=== PATIENT | male | born 1965 | race Caucasian/White ===

== ENCOUNTER → 2017-09-12 | Outpatient (REF) | payer OTHER ==
[2017-09-12 18:51] LABS: APPEARANCE, URINE CLEAR (CLEAR); BACTERIA, URINE AUTO NEGATIVE (NEGATIVE); BILIRUBIN, URINE AUTO NEGATIVE (NEGATIVE); BLOOD, URINE BLOOD NEGATIVE (NEGATIVE); COLOR, URINE YELLOW (YELLOW); GLUCOSE, URINE (UA) AUTO NEGATIVE (NEGATIVE); KETONE, URINE AUTO NEGATIVE (NEGATIVE); LEUKOCYTE ESTERASE, URINE AUTO NEGATIVE (NEGATIVE); MUCUS, URINE SMALL (NEGATIVE); NITRITE, URINE AUTO NEGATIVE (NEGATIVE); PROTEIN, URINE AUTO NEGATIVE (NEGATIVE); RBC, URINE AUTO 2 /HPF (0-3); SPECIFIC GRAVITY URINE AUTO 1.023 (1.002-1.035); SQUAMOUS EPITHELIAL CELL UR AU 0 /HPF (0-6); WBC, URINE AUTO 0 /HPF (0-3)
== END ==
LOC: M SMT 17:21
DX: N40.1 Benign prostatic hyperplasia with lower urinary tract symptoms (principal); R31.29 Other microscopic hematuria

== ENCOUNTER → 2017-09-19 | Outpatient (CLI) | payer OTHER | LOC: M RAD 12:59 | DX: M54.9 Dorsalgia, unspecified (principal); N40.0 Benign prostatic hyperplasia without lower urinary tract symptoms | CPT/HCPCS: 76775 ==

== ENCOUNTER → 2017-10-03 | Outpatient (REF) | payer OTHER ==
[2017-10-03 18:48] LABS: AMORPHOUS SEDIMENT LARGE (NEGATIVE); APPEARANCE, URINE TURBID (CLEAR); BACTERIA, URINE AUTO NEGATIVE (NEGATIVE); BILIRUBIN, URINE AUTO NEGATIVE (NEGATIVE); BLOOD, URINE BLOOD NEGATIVE (NEGATIVE); COLOR, URINE AMBER (YELLOW); GLUCOSE, URINE (UA) AUTO NEGATIVE (NEGATIVE); KETONE, URINE AUTO TRACE mg/dL (NEGATIVE); LEUKOCYTE ESTERASE, URINE AUTO NEGATIVE (NEGATIVE); MUCUS, URINE SMALL (NEGATIVE); NITRITE, URINE AUTO NEGATIVE (NEGATIVE); PROTEIN, URINE AUTO NEGATIVE (NEGATIVE); RBC, URINE AUTO 2 /HPF (0-3); SPECIFIC GRAVITY URINE AUTO 1.028 (1.002-1.035); SQUAMOUS EPITHELIAL CELL UR AU 0 /HPF (0-6); WBC, URINE AUTO 1 /HPF (0-3)
== END ==
LOC: M SMT 17:02
DX: R31.29 Other microscopic hematuria (principal)

== ENCOUNTER → 2017-10-03 | Outpatient (CLI) | payer OTHER | LOC: M SLEEP 20:01 | DX: G47.33 Obstructive sleep apnea (adult) (pediatric) (principal) | CPT/HCPCS: 95811 ==

== ENCOUNTER → 2018-04-29 | Outpatient (REF) | payer OTHER ==
[~2018-04-29] MED LIST: ALEV220C2 PO; ASPI81TA85 PO; CVS20TAB PO; FISH5CAP PO; LIPI20TA PO; MELA2.5C PO; METO-346 PO; METO1TAB87 PO; MULT1TAB8 PO; PLAV1TAB2 PO; TRAM50TA2 PO; VITA30004 PO; ZYRT10CA5 PO
== END ==
LOC: M SFHCLERA 09:37
PROVIDERS: ATTEND Nurse Practitioner Family
DX: R53.81 Other malaise (principal)

== ENCOUNTER → 2020-02-21 | Outpatient (REF) | payer BC, OTHER ==
[~2020-02-21] MED LIST changes: -ASPI81TA85 PO; +ASPI81TA86 PO; -CVS20TAB PO; +OMEP20TA9 PO
== END ==
LOC: M LAB REF 16:14
PROVIDERS: ATTEND Physician Assistant
DX: Z20.828 Contact with and (suspected) exposure to other viral communicable diseases (principal)

== ENCOUNTER → 2020-04-12 | Outpatient (CLI) | payer BC, OTHER | LOC: M LABSMTC 09:13 | PROVIDERS: ATTEND Anesthesiology | DX: Z01.812 Encounter for preprocedural laboratory examination (principal); Z20.822 Contact with and (suspected) exposure to COVID-19 ==

== ENCOUNTER 2020-04-17 11:56 | Day surgery (SDC) | payer BC, OTHER ==
[~2020-04-17] VITALS: Ht 177.8 cm; Wt 95.4 kg
[~2020-04-17 11:56] MED LIST changes: +ACET650T61 PO; +ASPI81TA26 PO; +CETI10CH PO; +CLOP75TA2 PO; +D31000TA2 PO; +FLOM0.4C39 PO; +FLUT15.819; +LIDOCAINE 2% 100MG/5ML SDV (FOR ANES.) As Ordered ONE; +LOSA25TA14 PO; +METO25TA4 PO; +NS 1,000 ML IV ONE; +OMEP1CAP73 PO; +REPA140I2 SC; +THERTAB52 PO; +fentaNYL 100 MCG/2 ML INJECTION (J3010) As Ordered ONE; +propofoL 200 MG/20 ML VIAL As Ordered ONE
--- OUTSIDE RECORDS SUMMARY | 2020-04-17 11:59 | CCD ---
Author Author [facility] Organization [facility] Address Unknown Phone Unavailable Care Team Providers Care Top Polisher Name Role Phone Amber Hodge Unavailable PROBLEMS Type Condition ICD9-CM Code [id number] Code Onset Dates Condition S tatus SNOMED Code Notes Problem Irritable bowel syndrome with constipation K58.1 Active 779060589 Problem Dietary counseling and surveillance Z71.3 Acti ve 837713740 Problem Pain of right thumb M79.644 Active 998577609710 9102 Problem Dorsalgia, unspecified M54.9 Active 309501570 Problem Influenza vaccine needed Z23 Active 0470590 01 Problem Intermittent palpitations R00.2 Active 014034 007 Problem Other specified counseling Z71.89 Active 48620 3005 Problem Lateral epicondylitis, right elbow M77.11 Activ e 103618969404620 Problem Trigger finger, right index finger M65.321 Activ e 092874739 Problem Encounter for general adult medical examination without abnormal findings Z00.00 Active 675600926 Problem Sinusitis J32.9 Active 18524728 Problem Skin lesions L98.9 Active 28249092 Problem Elevated blood pressure reading R03.0 Active 59697139 Problem Personal history of other malignant neoplasm of skin Z85.828 Active 309209107 Problem Enlarged prostate on rectal examination N40.0 Active 787901610 Problem Diverticulosis of large intestine without hemorrhage K57.30 Active 710284956 Problem Pure hypercholesterolemia 272.0 Active 613491 004 Problem 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 23 Active 85476378 Problem Golfers elbow of right upper extremity M77.01 A ctive 30891622 Problem H/O heart artery stent V45.82 Active 029015097 Problem Tendonitis of elbow, right M77.8 Active 30181 990154314309 Problem Essential (primary) hypertension 401.9 Active 62913469 Problem Actinic keratosis L57.0 Active 514465188 Problem Pain of left thumb M79.645 Active 795922461 Problem Right elbow pain M25.521 Active 96292743 Problem CAD (coronary artery disease) 414.00 Active 53 797929 Problem Essential (primary) hypertension I10 Active 37350646 Problem Vitamin D deficiency E55.9 Active 02412311 Problem History of heart artery stent Z95.5 Active 42 4135159 Problem Obesity (BMI 30.0-34.9) E66.9 Active 56867592 6623050 Problem History of colonic polyps Z86.010 Active 338127 002 Problem Fatty liver K76.0 Active 940222613 Problem Pure hypercholesterolemia E78.00 Active 704722 004 Problem Constipation, unspecified constipation type K59.00 Active 71106788 Problem Atypical pigmented skin lesion L81.9 Active 2 23723293 Problem Body mass index (BMI) of 30.0-30.9 in adult Z68.30 Active 716613360 Problem Obstructive sleep apnea G47.33 Active 21087404 Problem Status post percutaneous transluminal coronary angioplasty Z98.61 Active 051722251 ALLERGIES No Known Allergies ENCOUNTERS from 1965 to 2020-03-13 Encounter Location Date Provider Diagnosis [address] [address] 08 Mar, 2020 Amber Hodge IMMUNIZATIONS Vaccine Route Administration Date Status INFLUENZA 3 YRS AND OLDER Preservative free IM Intramuscular Jan 25, 2017 Administered INFLUENZA 3 YRS AND OLDER Preservative free Unknown Mar 28, 2016 Administered Influenza preservative free IM Intramuscular Dec 21, 2018 Adm inistered SOCIAL HISTORY Tobacco Use: Social History Observation Description Date Details (start date - stop date) Never Smoker Sex Assigned At : Social History Observation Description Sex Assigned At Male Alcohol Screen Question Answer Notes Did you have a drink containing alcohol in the past year? Ye s Points 0 Interpretation Negative Tobacco Use/Smoking Question Answer Notes Are you a never smoker REASON FOR REFERRAL No Information VITAL SIGNS No information MEDICATIONS Medication SIG (Take, Route, Frequency, Duration) Notes Start Da te End Date Status Zyrtec Allergy 10 MG 1 tablet Orally qhs for 30 day(s) Active Plavix 75 MG 1 tablet Orally Once a day Active Vitamin D 2000 UNIT 3 tablet Orally Once a day Active Repatha 140 MG/ML 1 ml Subcutaneous every 2 weeks Active Losartan Potassium 25 MG 1 tablet Orally Once a day for 90 days Active Aspirin 81 MG 1 tablet Orally Once a day Active Omeprazole 20 MG 1 capsule Orally qhs for 30 day(s) Active Tramadol HCl 50 MG 1 tablet as needed Orally q hs Not-Taking Metoprolol Tartrate 25 MG 1/2 tablet at bedtime Orally Once a day Active Flomax 0.4 mg 1 capsule Orally Once a day for 30 days 2017 Active PROCEDURES No Information RESULTS No Results REASON FOR VISIT appt MEDICAL (GENERAL) HISTORY Type Description Date Medical History Hyperlipidemia- familial Medical History GERD Medical History Chronic back pain/shoulder pain Medical History CAD (coronary artery disease) Medical History H/O heart artery stent Medical History Essential (primary) hypertension Surgical History B/L shoulder surgery 2003 Surgical History L5-S1 laminectomy Surgical History Testicular fixation due to torsion Surgical History coronary artery stent, another 08/2019 Surgical History Colonoscopy 02/2018 Hospitalization History myocardial infarction 2014 Goals Section No Information Health Concerns No Information MEDICAL EQUIPMENT No Information MENTAL STATUS No Information FUNCTIONAL STATUS No Information ASSESSMENTS No Information PLAN OF TREATMENT Medication Medication Name Sig Start Date Stop Date Losartan Potassium 25 MG 1 tablet Orally Once a day for 90 days Next Appt Details Provider Name:Karen Kelly, 2020-05-0 8 01:00:00 PM, [address] [place] [address], [id number], Insurance Providers Payer Name Payer Address Payer Phone Insured Name Patient Relati onship to Insured Coverage Start Date Coverage End Date [facility] [employer] [address] [facility] [phone] REGINA CAMPBELL
--- OUTSIDE RECORDS SUMMARY | 2020-04-17 11:59 | CCD | Continuity of Care Document ---
Author Author Wesley ROUSSEAU M.D. Organization Unknown Address [address], [address] [place] [address] Phone [phone] Care Team Providers Care Wheel Cleaner Name Role Phone Amber Hodge AUTM [phone] Problems Active Problems Provider Date Essential hypertension Bebeto Rousseau M.D. Onset: 03/2019 Social History Type Date Description Comments Sex Unknown ETOH Use 1-2 drinks/wk Tobacco Use Start: Unknown Non Smoker Allergies, Adverse Reactions, Alerts Description No Known Drug Allergies Medications Active Medications SIG Qnty Indications Ordering Provide r Date Losartan Potassium 25mg Tablets 1tab po qd Unknown Metoprolol Tartrate 25mg Tablets 1/2tab po qd Unknown Omeprazole 20mg Capsules DR 1cap po qd Unknown Tamsulosin HCL 0.4mg Capsules 1cap po qd Unknown Cetirizine HCL 10mg Tablets 1tab po qd Unknown Tylenol Extra Strength 500mg Table ts 1tab po q8h prn Unknown Aspirin [address] 1t ab po qd Unknown Clopidogrel Bisulfate 75mg Tablets (Plavix) 1tab po qd Unknown Repatha 140mg/ml Soln Prefill Syri nge Inj q2wks Unknown Immunizations Description No Information Available Vital Signs Date Vital Result Comment 02/04/2020 8:30am BP Systolic 148 mmHg BP Diastolic 76 mmHg Height 70 inches 5'10" Weight 210.00 lb BMI (Body Mass Index) 30.1 kg/m2 Erick Body Weight 166 lb Weight 95.256 kg BSA (Body Surface Area) 2.13 m2 Results Description No Information Available Procedures Description No Information Available Medical Devices Description No Information Available Encounters Description No Information Available Assessments Date Code Description Provider 02/04/2020 K76.0 Fatty (change of) liver, not els ewhere classified Bebeto Rousseau M.D. 02/04/2020 R10.13 Epigastric pain Bebeto Shaikh ala, M.D. Plan of Treatment 02/04/2020 - Bebeto Rousseau M.D.* K76.0 Fatty (change of) liver, not elsewhere classified * R10.13 Epigastric pain * * New Labs:* CBC With Differential, Ordered: 02/04/20 * Liver Profile, Ordered: 02/04/20 * BUN & Creatinine (SMC), Ordered: 02/04/20 * H Pylori QL Igg, Ordered: 02/04/20 * Lipid Panel, Ordered: 02/04/20 * Link Fibrosure, Ordered: 02/04/20 * Total Iron Binding Capacit, Ordered: 02/04/20 * Tissue Transglutaminase Iga, Ordered: 02/04/20 * Iga Subclasses, Ordered: 02/04/20 * Comments:* Possible differentials: Functional Status Description No Information Available Mental Status Description No Information Available Referrals Refer to Dr Reason for Referral Status Appt Date Bebeto Rousseau M.D. office consult new or beverly ybarrahed pt. - 01/02/2020 - 06/30/2020 office/outpatient visit - - 01/02/2020 - 01/01/2021 dx: hepatomegaly not eslewhere classified Created [address] [place] [address] [id number] [phone] Bebeto Rousseau M.D. UPPER ABDOMINAL PAIN, EXPE RIENCE "FLARES" US WITH FATTER LIVER AND MILD HEPATOMEGALY Created [address] [place] [phone]
--- OUTSIDE RECORDS SUMMARY | 2020-04-17 11:59 | CCD ---
Author Author [facility] Organization [facility] Address Unknown Phone Unavailable Care Team Providers Care Enterprise Architect Name Role Phone Amber Hodge Unavailable PROBLEMS Type Condition ICD9-CM Code [id number] Code Onset Dates Condition S tatus SNOMED Code Notes Problem Irritable bowel syndrome with constipation K58.1 Active 325291258 Problem Dietary counseling and surveillance Z71.3 Acti ve 355554220 Problem Pain of right thumb M79.644 Active 424684525780 9102 Problem Dorsalgia, unspecified M54.9 Active 859502768 Problem Influenza vaccine needed Z23 Active 9128476 01 Problem Intermittent palpitations R00.2 Active 318170 007 Problem Other specified counseling Z71.89 Active 79282 3005 Problem Lateral epicondylitis, right elbow M77.11 Activ e 683885348140866 Problem Trigger finger, right index finger M65.321 Activ e 491174921 Problem Encounter for general adult medical examination without abnormal findings Z00.00 Active 976978488 Problem Sinusitis J32.9 Active 65533262 Problem Skin lesions L98.9 Active 98139910 Problem Elevated blood pressure reading R03.0 Active 43682220 Problem Personal history of other malignant neoplasm of skin Z85.828 Active 389518034 Problem Enlarged prostate on rectal examination N40.0 Active 266592142 Problem Diverticulosis of large intestine without hemorrhage K57.30 Active 759833978 Problem Pure hypercholesterolemia 272.0 Active 275443 004 Problem 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 23 Active 18215074 Problem Golfers elbow of right upper extremity M77.01 A ctive 60875083 Problem H/O heart artery stent V45.82 Active 558475650 Problem Tendonitis of elbow, right M77.8 Active 66323 360088761207 Problem Essential (primary) hypertension 401.9 Active 38490971 Problem Actinic keratosis L57.0 Active 512507426 Problem Pain of left thumb M79.645 Active 042645035 Problem Right elbow pain M25.521 Active 30637785 Problem CAD (coronary artery disease) 414.00 Active 53 477538 Problem Essential (primary) hypertension I10 Active 63781074 Problem Vitamin D deficiency E55.9 Active 75147660 Problem History of heart artery stent Z95.5 Active 42 3858288 Problem Obesity (BMI 30.0-34.9) E66.9 Active 85695198 7970193 Problem History of colonic polyps Z86.010 Active 684887 002 Problem Fatty liver K76.0 Active 938754908 Problem Pure hypercholesterolemia E78.00 Active 260748 004 Problem Constipation, unspecified constipation type K59.00 Active 43096244 Problem Atypical pigmented skin lesion L81.9 Active 2 57625385 Problem Body mass index (BMI) of 30.0-30.9 in adult Z68.30 Active 426236628 Problem Obstructive sleep apnea G47.33 Active 67408943 Problem Status post percutaneous transluminal coronary angioplasty Z98.61 Active 506656981 ALLERGIES No Known Allergies ENCOUNTERS from 1965 to 2020-01-24 Encounter Location Date Provider Diagnosis [address] [address] Jan, Amber Hodge IMMUNIZATIONS Vaccine Route Administration Date [...] Information RESULTS No Results REASON FOR VISIT call back MEDICAL (GENERAL) HISTORY Type Description Date Medical [...] Orally Once a day for 90 days Insurance Providers Payer Name Payer Address Payer Phone Insured Name Patient Relati onship to Insured Coverage Start Date Coverage End Date [facility] [employer] [address] [facility] [phone] REGINA CAMPBELL self
--- OUTSIDE RECORDS SUMMARY | 2020-04-17 12:00 | CCD ---
Author Author [facility] Organization [facility] Address Unknown Phone Unavailable Support Name Relationship Address Phone DEPT OF DEFENSE Next Of Kin [place] [facility] [place] [address] - [place] [employer] Next Of Kin [address] [place] [address] [place] Next Of Kin [address] Unknown Unavailable EEO Next Of Kin ALBA WILKINSON, BLDG [address] [facility] [place] [address] DEPARTMENT OF DEFENSE Next Of Kin [address] [facility] [place] [address] [facility] Next Of Kin - [facility] [address] [place] [facility] E[address] Next Of Kin [facility] [address] [place] [address] FRANSISCA CAMPBELL Next Of Kin [address] [place] [address] NESTOR CAMPBELL Next [place] [address] [place] [address] [place] [address] NIKARAPARTH (HCP) NESTOR Next Of Kin [address] [place] [address] DELONTE ACMPBELL Next Of Kin [address] [place] [address] NESTOR CARRANZA ECON [address] [place] [address] Unavailable DELONTE CAMPBELL ECON [address] [place] [address] Unavailable Care Team Providers Care System Planning Engineer Name Role Phone Gayatri JENKINS Unavailable Unavailable Gayatri JENKINS PA Unavailable Unavailable Gayatri JENKINS PA Unavailable Unavailable Gayatri JENKINS PA Unavailable Unavailable Gayatri JENKINS PA Unavailable Unavailable Gayatri JENKINS PA Unavailable Unavailable Gayatri JENKINS PA Unavailable Unavailable SYMENOW, G CHRISTOPHER PA Unavailable Unavailable SYMENOW, G CHRISTOPHER PA Unavailable Unavailable SYMENOW, G CHRISTOPHER PA Unavailable Unavailable SYMENOW, G CHRISTOPHER PA Unavailable Unavailable SYMENOW, G CHRISTOPHER PA Unavailable Unavailable SYMENOW, G CHRISTOPHER PA Unavailable Unavailable SYMENOW, G CHRISTOPHER PA Unavailable Unavailable SYMENOW, G CHRISTOPHER PA Unavailable Unavailable SYMENOW, G CHRISTOPHER PA Unavailable Unavailable SYMENOW, G CHRISTOPHER PA Unavailable Unavailable [place], L Fransisca REAL ESTATE AGENT Unavailable Unavailable [place], L Fransisca REAL ESTATE AGENT Unavailable Unavailable [place], L Fransisca REAL ESTATE AGENT Unavailable Unavailable Naveen, L Fransisca REAL ESTATE AGENT Unavailable Unavailable [place], L Fransisca REAL ESTATE AGENT Unavailable Unavailable [place], L Fransisca REAL ESTATE AGENT Unavailable Unavailable [place], L Fransisca REAL ESTATE AGENT Unavailable Unavailable [place], L Fransisca REAL ESTATE AGENT Unavailable Unavailable Naveen, L Fransisca REAL ESTATE AGENT Unavailable Unavailable [place], L Fransisca REAL ESTATE AGENT Unavailable Unavailable [place], L Fransisca REAL ESTATE AGENT Unavailable Unavailable [place], L Fransisca REAL ESTATE AGENT Unavailable Unavailable [place], L Fransisca REAL ESTATE AGENT Unavailable Unavailable [place], L Fransisca REAL ESTATE AGENT Unavailable Unavailable Naveen, L Fransisca REAL ESTATE AGENT Unavailable Unavailable Naveen, L Fransisca REAL ESTATE AGENT Unavailable Unavailable Naveen, L Fransisca REAL ESTATE AGENT Unavailable Unavailable Naveen, L Fransisca REAL ESTATE AGENT Unavailable Unavailable Naveen, L Fransisca REAL ESTATE AGENT Unavailable Unavailable [place], L Fransisca REAL ESTATE AGENT Unavailable Unavailable [place], L Fransisca REAL ESTATE AGENT Unavailable Unavailable Naveen, L Fransisca REAL ESTATE AGENT Unavailable Unavailable [place], L Fransisca REAL ESTATE AGENT Unavailable Unavailable Naveen, L Fransisca REAL ESTATE AGENT Unavailable Unavailable Naveen, L Fransisca REAL ESTATE AGENT Unavailable Unavailable [place], L Fransisca REAL ESTATE AGENT Unavailable Unavailable Naveen, L Fransisca REAL ESTATE AGENT Unavailable Unavailable Naveen, L Fransisca REAL ESTATE AGENT Unavailable Unavailable Naveen, L Fransisca REAL ESTATE AGENT Unavailable Unavailable [place], L Fransisca REAL ESTATE AGENT Unavailable Unavailable Naveen, L Fransisca REAL ESTATE AGENT Unavailable Unavailable Naveen, L Fransisca REAL ESTATE AGENT Unavailable Unavailable SINGH, CRISTIAN CANDELARIO REFRIGERATOR MOVER-C, MSN Unavailable Unavailab le SINGHCRISTIAN GARCIA REFRIGERATOR MOVER-C, MSN Unavailable Unavailab le SINGHCRISTIAN PARSONS REFRIGERATOR MOVER-C, MSN Unavailable Unavailab le SINGHCRISTIAN GARCIA REFRIGERATOR MOVER-C, MSN Unavailable Unavailab le SINGHCRISTIAN GARCIAA REFRIGERATOR MOVER-C, MSN Unavailable Unavailab le SINGH, CRISTIAN ANDREE REFRIGERATOR MOVER-C, MSN Unavailable Unavailab le SINGH, CRISTIAN ANDREE REFRIGERATOR MOVER-C, MSN Unavailable Unavailab le SINGH, CRISTIAN ANDREE REFRIGERATOR MOVER-C, MSN Unavailable Unavailab le SINGH, CRISTIAN ANDREE REFRIGERATOR MOVER-C, MSN Unavailable Unavailab le SINGH, CRISTIAN ANDREE REFRIGERATOR MOVER-C, MSN Unavailable Unavailab le SINGH, CRISTIAN ANDREE REFRIGERATOR MOVER-C, MSN Unavailable Unavailab le SINGH, CRISTIAN ANDREE REFRIGERATOR MOVER-C, MSN Unavailable Unavailab le SINGH, CRISTIAN ANDREE REFRIGERATOR MOVER-C, MSN Unavailable Unavailab le SINGH, CRISTIAN ANDREE REFRIGERATOR MOVER-C, MSN Unavailable Unavailab le SINGH, CRISTIAN ANDREE REFRIGERATOR MOVER-C, MSN Unavailable Unavailab le SINGH, CRISTIAN ANDREE REFRIGERATOR MOVER-C, MSN Unavailable Unavailab le SINGH, CRISTIAN ANDREE REFRIGERATOR MOVER-C, MSN Unavailable Unavailab le SINGH, CRISTIAN ANDREE REFRIGERATOR MOVER-C, MSN Unavailable Unavailab le SINGH, CRISTIAN ANDREE REFRIGERATOR MOVER-C, MSN Unavailable Unavailab le SINGH, CRISTIAN ANDREE REFRIGERATOR MOVER-C, MSN Unavailable Unavailab le SINGH, CRISTIAN ANDREE REFRIGERATOR MOVER-C, MSN Unavailable Unavailab le SINGH, CRISTIAN ANDREE REFRIGERATOR MOVER-C, MSN Unavailable Unavailab le SINGH, CRISTIAN ANDREE REFRIGERATOR MOVER-C, MSN Unavailable Unavailab le SINGH, CRISTIAN ANDREE REFRIGERATOR MOVER-C, MSN Unavailable Unavailab le SINGH, CRISTIAN ANDREE REFRIGERATOR MOVER-C, MSN Unavailable Unavailab le SINGH, CRISTIAN ANDREE REFRIGERATOR MOVER-C, MSN Unavailable Unavailab le SINGH, CRISTIAN ANDREE REFRIGERATOR MOVER-C, MSN Unavailable Unavailab le SINGH, CRISTIAN ANDREE REFRIGERATOR MOVER-C, MSN Unavailable Unavailab le SINGH, CRISTIAN ANDREE REFRIGERATOR MOVER-C, MSN Unavailable Unavailab le SINGH, CRISTIAN ANDREE REFRIGERATOR MOVER-C, MSN Unavailable Unavailab le SINGH, CRISTIAN ANDREE REFRIGERATOR MOVER-C, MSN Unavailable Unavailab le SINGH, CRISTIAN ANDREE REFRIGERATOR MOVER-C, MSN Unavailable Unavailab le SINGH, CRISTIAN ANDREE REFRIGERATOR MOVER-C, MSN Unavailable Unavailab le SINGH, CRISTIAN ANDREE REFRIGERATOR MOVER-C, MSN Unavailable Unavailab le SINGH, CRISTIAN ANDREE REFRIGERATOR MOVER-C, MSN Unavailable Unavailab le SINGH, CRISTIAN ANDREE REFRIGERATOR MOVER-C, MSN Unavailable Unavailab le SINGH, CRISTIAN ANDREE REFRIGERATOR MOVER-C, MSN Unavailable Unavailab le SINGH, CRISTIAN ANDREE REFRIGERATOR MOVER-C, MSN Unavailable Unavailab le SINGH, CRISTIAN ANDREE REFRIGERATOR MOVER-C, MSN Unavailable Unavailab le SINGH, CRISTIAN ANDREE REFRIGERATOR MOVER-C, MSN Unavailable Unavailab le SINGH, CRISTIAN ANDREE REFRIGERATOR MOVER-C, MSN Unavailable Unavailab le SINGH, CRISTIAN ANDREE REFRIGERATOR MOVER-C, MSN Unavailable Unavailab le SINGH, CRISTIAN ANDREE REFRIGERATOR MOVER-C, MSN Unavailable Unavailab le ALCONKIAH MD Unavailable Unavailable ALCON, KIAH CASANOVA Unavailable Unavailable ALCON, KIAH CASANOVA Unavailable Unavailable ALCON, KIAH CASANOVA Unavailable Unavailable ALCON, KIAH CASANOVA Unavailable Unavailable ALCON, KIAH CASANOVA Unavailable Unavailable ALCON, KIAH CASANOVA Unavailable Unavailable ALCON, KIAH CASANOVA Unavailable Unavailable ALCON, KIAH CASANOVA Unavailable Unavailable ALCON, KIAH CASANOVA Unavailable Unavailable ALCON, KIAH CASANOVA Unavailable Unavailable ALCON, KIAH CASANOVA Unavailable Unavailable ALCON, KIAH CASANOVA Unavailable Unavailable ALCON, KIAH CASANOVA Unavailable Unavailable ALCON, KIAH CASANOVA Unavailable Unavailable ALCON, KIAH CASANOVA Unavailable Unavailable ALCON, KIAH CASANOVA Unavailable Unavailable ALCON, KIAH CASANOVA Unavailable Unavailable ALCON, KIAH CASANOVA Unavailable Unavailable ALCON, KIAH CASANOVA Unavailable Unavailable ALCON, KIAH CASANOVA Unavailable Unavailable ALCON, KIAH CASANOVA Unavailable Unavailable ALCON, KIAH CASANOVA Unavailable Unavailable ALCON, KIAH CASANOVA Unavailable Unavailable ALCON, KIAH CASANOVA Unavailable Unavailable ALCON, KIAH CASANOVA Unavailable Unavailable ALCON, KIAH CASANOVA Unavailable Unavailable ALCON, KIAH CASANOVA Unavailable Unavailable ALCON, KIAH CASANOVA Unavailable Unavailable ALCON, KIAH CASANOVA Unavailable Unavailable ALCON, KIAH CASANOVA Unavailable Unavailable ALCON, KIAH CASANOVA Unavailable Unavailable ALCON, KIAH CASANOVA Unavailable Unavailable ALCON, KIAH CASANOVA Unavailable Unavailable ALCON, KIAH CASANOVA Unavailable Unavailable ALCON, KIAH CASANOVA Unavailable Unavailable ALCON, KIAH CASANOVA Unavailable Unavailable ALCON, KIAH CASANOVA Unavailable Unavailable ALCON, KIAH CASANOVA Unavailable Unavailable ALCON, KIAH CASANOVA Unavailable Unavailable ALCON, DUPONT MD Unavailable Unavailable ALCON, DUPONT MD Unavailable Unavailable ALCON, DUPONT MD Unavailable Unavailable ALCON, DUPONT MD Unavailable Unavailable ALCON, DUPONT MD Unavailable Unavailable ALCON, DUPONT MD Unavailable Unavailable ALCON, DUPONT MD Unavailable Unavailable ALCON, DUPONT MD Unavailable Unavailable ALCON, DUPONT MD Unavailable Unavailable ALCON, DUPONT MD Unavailable Unavailable ALCON, DUPONT MD Unavailable Unavailable ALCON, DUPONT MD Unavailable Unavailable ALCON, DUPONT MD Unavailable Unavailable ALCON, DUPONT MD Unavailable Unavailable El-Khally, A Ziad MD Unavailable Unavailable El-Khally, A Ziad MD Unavailable Unavailable El-Khally, A Ziad MD Unavailable Unavailable El-Khally, A Ziad MD Unavailable Unavailable El-Khally, A Ziad MD Unavailable Unavailable El-Khally, A Ziad MD Unavailable Unavailable El-Khally, A Ziad MD Unavailable Unavailable El-Khally, A Ziad MD Unavailable Unavailable El-Khally, A Ziad MD Unavailable Unavailable El-Khally, A Ziad MD Unavailable Unavailable El-Khally, A Ziad MD Unavailable Unavailable El-Khally, A Ziad MD Unavailable Unavailable El-Khally, A Ziad MD Unavailable Unavailable El-Khally, A Ziad MD Unavailable Unavailable El-Khally, A Ziad MD Unavailable Unavailable El-Khally, A Ziad MD Unavailable Unavailable El-Khally, A Ziad MD Unavailable Unavailable El-Khally, A Ziad MD Unavailable Unavailable El-Khally, A Ziad MD Unavailable Unavailable El-Khally, A Ziad MD Unavailable Unavailable El-Khally, A Ziad MD Unavailable Unavailable El-Khally, A Ziad MD Unavailable Unavailable El-Khally, A Ziad MD Unavailable Unavailable El-Khally, A Ziad MD Unavailable Unavailable El-Khally, A Ziad MD Unavailable Unavailable El-Khally, A Ziad MD Unavailable Unavailable El-Khally, A Ziad MD Unavailable Unavailable El-Khally, A Ziad MD Unavailable Unavailable El-Khally, A Ziad MD Unavailable Unavailable El-Khally, A Ziad MD Unavailable Unavailable El-Khally, A Ziad MD Unavailable Unavailable El-Khally, A Ziad MD Unavailable Unavailable El-Khally, A Ziad MD Unavailable Unavailable El-Khally, A Ziad MD Unavailable Unavailable El-Khally, A Ziad MD Unavailable Unavailable El-Khally, A Ziad MD Unavailable Unavailable El-Khally, A Ziad MD Unavailable Unavailable El-Khally, A Ziad MD Unavailable Unavailable Hang Priest MD Unavailable Unavailable Anjelica ROUSSEAU MD Unavailable Unavailable Anjelica ROUSSEAU MD Unavailable Unavailable Anjelica ROUSSEAU MD Unavailable Unavailable Anjelica ROUSSEAU MD Unavailable Unavailable Anjelica ROUSSEAU MD Unavailable Unavailable Anjelica ROUSSEAU MD Unavailable Unavailable Anjelica ROUSSEAU MD Unavailable Unavailable Anjelica ROUSSEAU MD Unavailable Unavailable Anjelica ROUSSEAU MD Unavailable Unavailable Anjelica ROUSSEAU MD Unavailable Unavailable Anjelica ROUSSEAU MD Unavailable Unavailable Anjelica ROUSSEAU MD Unavailable Unavailable Anjelica ROUSSEAU MD Unavailable Unavailable Anjelica ROUSSEAU MD Unavailable Unavailable Anjelica ROUSSEAU MD Unavailable Unavailable Anjelica ROUSSEAU MD Unavailable Unavailable Anjelica ROUSSEAU MD Unavailable Unavailable Anjelica ROUSSEAU MD Unavailable Unavailable Anjelica ROUSSEAU MD Unavailable Unavailable Anjelica ROUSSEAU MD Unavailable Unavailable Anjelica ROUSSEAU MD Unavailable Unavailable Anjelica ROUSSEAU MD Unavailable Unavailable Anjelica ROUSSEAU MD Unavailable Unavailable Anjelica ROUSSEAU MD Unavailable Unavailable Anjelica ROUSSEAU MD Unavailable Unavailable Anjelica ROUSSEAU MD Unavailable Unavailable Anjelica ROUSSEAU MD Unavailable Unavailable Anjelica ROUSSEAU MD Unavailable Unavailable Anjelica ROUSSEAU MD Unavailable Unavailable Anjelica ROUSSEAU MD Unavailable Unavailable Anjelica ROUSSEAU MD Unavailable Unavailable Anjelica ROUSSEAU MD Unavailable Unavailable Anjelica ROUSSEAU MD Unavailable Unavailable KIAH RONDON MD Unavailable Unavailable KIAH RONDON MD Unavailable Unavailable KIAH RONDON MD Unavailable Unavailable KIAH RONDON MD Unavailable Unavailable KIAH RONDON MD Unavailable Unavailable KIAH RONDON MD Unavailable Unavailable KIAH RONDON MD Unavailable Unavailable KIAH RONDON MD Unavailable Unavailable KIAH RONDON MD Unavailable Unavailable KIAH RONDON MD Unavailable Unavailable KIAH RONDON MD Unavailable Unavailable KIAH RONDON MD Unavailable Unavailable KIAH RONDON MD Unavailable Unavailable KIAH RONDON MD Unavailable Unavailable KIAH RONDON MD Unavailable Unavailable KIAH RONDON MD Unavailable Unavailable KIAH RONDON MD Unavailable Unavailable ALCON, KIAH CASANOVA Unavailable Unavailable ALCON, KIAH CASANOVA Unavailable Unavailable ALCON, KIAH MD Unavailable Unavailable ALCON, DUPONT MD Unavailable Unavailable ALCON, KIAH CASANOVA Unavailable Unavailable ALCON, KIAH CASANOVA Unavailable Unavailable ALCON, KIAH CASANOVA Unavailable Unavailable ALCON, KIAH MD Unavailable Unavailable ALCON, DUPONT MD Unavailable Unavailable ALCON, DUPONT MD Unavailable Unavailable ALCON, DUPONT MD Unavailable Unavailable ALCON, DUPONT MD Unavailable Unavailable ALCON, DUPONT MD Unavailable Unavailable ALCON, KIAH MD Unavailable Unavailable ALCON, KIAH MD Unavailable Unavailable ALCON, KIAH MD Unavailable Unavailable ALCON, KIAH MD Unavailable Unavailable ALCON, DUPONT MD Unavailable Unavailable ALCON, DUPONT MD Unavailable Unavailable ALCON, DUPONT MD Unavailable Unavailable ALCON, DUPONT MD Unavailable Unavailable ALCON, DUPONT MD Unavailable Unavailable ALCON, KIAH MD Unavailable Unavailable ALCON, KIAH MD Unavailable Unavailable ALCON, KIAH MD Unavailable Unavailable ALCON, KIAH MD Unavailable Unavailable ALCON, KIAH MD Unavailable Unavailable ALCON, KIAH MD Unavailable Unavailable ALCON, KIAH MD Unavailable Unavailable ALCON, KIAH MD Unavailable Unavailable ALCON, KIAH MD Unavailable Unavailable ALCON, KIAH MD Unavailable Unavailable ALCON, KIAH CASANOVA Unavailable Unavailable ALCON, KIAH CASANOVA Unavailable Unavailable ALCON, KIAH CASANOVA Unavailable Unavailable ALCON, KIAH CASANOVA Unavailable Unavailable ALCON, KIAH CASANOVA Unavailable Unavailable HUIZENGA, D GUILLERMO DO Unavailable Unavailable HUIZENGA, Maycol POPON DO Unavailable Unavailable HUIZENGA, D GUILLERMO DO Unavailable Unavailable HUIZENGA, Maycol POPON DO Unavailable Unavailable HUIZENGA, Maycol LI DO Unavailable Unavailable HUIZENGA, Maycol LI DO Unavailable Unavailable HUIZENGA, Maycol POPON DO Unavailable Unavailable HUIZENGA, Maycol LI DO Unavailable Unavailable HUIZENGA, D GUILLERMO DO Unavailable Unavailable HUIZENGA, Maycol POPON DO Unavailable Unavailable HUIZENGA, Maycol LI DO Unavailable Unavailable HUIZENGAMaycol DO Unavailable Unavailable HUIZENGA, D GUILLERMO DO Unavailable Unavailable HUIZENGA, D GUILLERMO DO Unavailable Unavailable HUIZENGA, D GUILLERMO DO Unavailable Unavailable HUIZENGA, D GUILLERMO DO Unavailable Unavailable HUIZENGA, D GUILLERMO DO Unavailable Unavailable HUIZENGAMaycolON DO Unavailable Unavailable HUIZENGA, D GUILLERMO DO Unavailable Unavailable HUIZENGA, D GUILLERMO DO Unavailable Unavailable HUIZENGA, D GUILLERMO DO Unavailable Unavailable HUIZENGA, D GUILLERMO DO Unavailable Unavailable HUIZENGA, Maycol LI DO Unavailable Unavailable HUIZENGA, Maycol LI DO Unavailable Unavailable HUIZENGA, Maycol LI DO Unavailable Unavailable HUIZENGA, Maycol LI DO Unavailable Unavailable HUIZENGA, Maycol LI DO Unavailable Unavailable HUIZENGA, Maycol LI DO Unavailable Unavailable HUIZENGA, Maycol LI DO Unavailable Unavailable HUIZENGA, Maycol LI DO Unavailable Unavailable HUIZENGA, Maycol LI DO Unavailable Unavailable HUIZENGA, Maycol LI DO Unavailable Unavailable HUIZENGA, Maycol LI DO Unavailable Unavailable HUIZENGA, Maycol LI DO Unavailable Unavailable HUIZENGA, Maycol LI DO Unavailable Unavailable HUIZENGA, Maycol LI DO Unavailable Unavailable HUIZENGA, Maycol LI DO Unavailable Unavailable HUIZENGA, Maycol LI DO Unavailable Unavailable HUIZENGA, Maycol LI DO Unavailable Unavailable HUIZENGA, Maycol LI DO Unavailable Unavailable HUIZENGA, Maycol LI DO Unavailable Unavailable HUIZENGA, Maycol LI DO Unavailable Unavailable HUIZENGA, Maycol LI DO Unavailable Unavailable HUIZENGA, Maycol LI DO Unavailable Unavailable HUIZENGA, Maycol LI DO Unavailable Unavailable HUIZENGA, Maycol LI DO Unavailable Unavailable HUIZENGA, Maycol LI DO Unavailable Unavailable HUIZENGA, Maycol LI DO Unavailable Unavailable HUIZENGA, Maycol LI DO Unavailable Unavailable HUIZENGA, Maycol LI DO Unavailable Unavailable HUIZENGA, Maycol LI DO Unavailable Unavailable HUIZENGA, Maycol LI DO Unavailable Unavailable HUIZENGA, Maycol LI DO Unavailable Unavailable HUIZENGA, Maycol LI DO Unavailable Unavailable HUIZENGA, Maycol LI DO Unavailable Unavailable HUIZENGA, Maycol LI DO Unavailable Unavailable HUIZENGA, Maycol LI DO Unavailable Unavailable HUIZENGA, Maycol LI DO Unavailable Unavailable HUIZENGA, Maycol LI DO Unavailable Unavailable HUIZENGA, Maycol LI DO Unavailable Unavailable HUIZENGA, Maycol LI DO Unavailable Unavailable HUIZENGA, Maycol LI DO Unavailable Unavailable HUIZENGA, Maycol LI DO Unavailable Unavailable HUIZENGA, Maycol LI DO Unavailable Unavailable HUIZENGA, Maycol LI DO Unavailable Unavailable HUIZENGA, Mayclo LI DO Unavailable Unavailable HUIZENGA, Maycol LI DO Unavailable Unavailable HUIZENGA, D GUILLERMO DO Unavailable Unavailable HUIZENGA, D GUILLERMO DO Unavailable Unavailable HUIZENGA, D GUILLERMO DO Unavailable Unavailable HUIZENGA, D GUILLERMO DO Unavailable Unavailable HUIZENGA, D GUILLERMO DO Unavailable Unavailable HUIZENGA, D GUILLERMO DO Unavailable Unavailable Re-disclosure Warning The records that you are about to access may contain information from federally-assisted alcohol or drug abuse programs. If such information is present, then the following federally mandated warning applies: This information has been disclosed to you from records protected by federal confidentiality rules (42 CFR part 2). The federal rules prohibit you from making any further disclosure of this information unless further disclosure is expressly permitted by the written consent of the person to whom it pertains or as otherwise permitted by 42 CFR part 2. A general authorization for the release of medical or other information is NOT sufficient for this purpose. The Federal rules restrict any use of the information to criminally investigate or prosecute any alcohol or drug abuse patient.The records that you are about to access may contain highly sensitive health information, the redisclosure of which is protected by Article 27-F of the [facility] Public Health law. If you continue you may have access to information: Regarding HIV / AIDS; Provided by facilities licensed or operated by the [facility] Office of Mental Health; or Provided by the [facility] Office for People With Developmental Disabilities. If such information is present, then the following [facility] mandated warning applies: This information has been disclosed to you from confidential records which are protected by state law. State law prohibits you from making any further disclosure of this information without the specific written consent of the person to whom it pertains, or as otherwise permitted by law. Any unauthorized further disclosure in violation of state law may result in a fine or fdc sentence or both. A general authorization for the release of medical or other information is NOT sufficient authorization for further disc losure. Family History Family Member Name Family Member Gender Family Member Status Date o f Status Description Data Source(s) Unknown Unknown Problem [facility] ([facility]) Encounters Encounter Providers Location Date Indications Data Source(s ) Outpatient [facility] 03/13/2020 12:00:00 AM EST eCW1 ([facility]) Outpatient Attender: MATILDE ROUSSEAU MDReferrer : Fransisca STEPHENS EM[facility] RO[facility]-LABOTHPROV 03/10/2020 07:12:00 AM EST - 03/10/2020 07:12:00 AM EST [facility] Outpatient [facility] 01/22/2020 12:00:00 AM EST eCW1 ([facility]) Outpatient [facility] 01/08/2020 12:00:00 AM EST eCW1 ([facility]) Outpatient Attender: KIAH RONDON MD 01/07/2020 03:15:00 PM E [facility] Outpatient Attender: KIAH [email or web address] 01/07/2020 07:33:37 AM EST [facility] Outpatient [facility] 10/04/2019 12:00:00 AM EDT eCW1 ([facility]) Outpatient Attender: Fransisca Hodge RNPReferrer: Fransisca STEPHENS 09/13/2019 08:00:00 AM EDT [facility] Outpatient [facility] 09/13/2019 12:00:00 AM EDT eCW1 ([facility]) Outpatient [facility] 09/10/2019 12:00:00 AM EDT eCW1 ([facility]) Outpatient Attender: Fransisca STEPHENS 09/02/2019 02:14:00 PM EDT [facility] 09/02/2019 12:00:00 AM EDT eCW1 ([facility]) Emergency Attender: Deni Priest MDAdmitter: Deni galan MD [email or web address] 08/30/2019 08:42:00 AM EDT - 08/30/2019 06:17:00 PM EDT [facility] Patient discharged. Outpatient Attender: KIAH RONDON MD ED-LABGH 0 10:25:00 AM EDT - 08/29/2019 10:26:00 AM EDT CHEST PAIN I10 [facility] CHEST PAIN I10 Patient discharged. Outpatient Attender: KIAH RONDON MD SJP-[email or web address].GVR 0 12:00:00 AM EDT - 08/29/2019 01:37:[address] [facility] Outpatient Attender: KIAH [email or web address].[email or web address] 08/20/2019 07:56:37 AM EDT [facility] Outpatient Attender: KIAH [email or web address] 06/25/2019 08:04:27 AM EDT [facility] Outpatient Attender: SREEKANTH DESIR 05/07/2019 0 7:37:00 AM [facility] C ENTER 05/07/2019 12:00:00 AM EST eCW1 ([facility]) [facility] ENTER 04/19/2019 12:00:00 AM EST eCW1 ([facility]) Outpatient Referrer: KIAH [email or web address] 03/22/2019 12:00:00 AM EST [facility] Outpatient SHELBY.[email or web address] 03/08/2019 01:51 :41 PM EST - 03/08/2019 02:19:[address] [facility] C ENTER 03/08/2019 12:00:00 AM EST eCW1 ([facility]) Outpatient Attender: ANDREE CAMPBELL MSN 02/19/2019 11:20:00 AM EST - 04/05/2018 12:00:[address] [facility] Outpatient Attender: KIAH RONDON MDConsultant: KIAH RONDON MD S [email or web address] 12/25/2018 08:37:[address] [facility] Outpatient Attender: ANDREE CAMPBELL MSNReferr er: SREEKANTH DESIR 03/08/2018 04:28:00 PM EST - 03/08/2018 04:28:[address] [facility] Outpatient Attender: ANDREE CAMPBELL MSN 09/17/2015 0 8:14:00 AM [facility] Outpatient Attender: GUILLERMO Steeleerrer: GUILLERMO WYNN DO 07/18/2014 04:54:00 PM [facility] Outpatient Attender: GUILLERMO LEIDY Steeleerrer: GUILLERMO REINALDO WYNN DO 03/18/2014 01:30:[address] [facility] Emergency Attender: MYRIAM Vitaleerrer : GUILLERMOGARIMA FORBES DO EMERGENCY ROOM-ER 10/03/2013 11:36:00 AM EDT - 10/03/2013 04:04:00 PM [facility] Outpatient Attender: GUILLERMO LEIDY ERNANDEZ 05/09/2013 02:10:[address] [facility] Medications Medication Brand Name Start Date Product Form Dose Route Admi nistrative Instructions Pharmacy Instructions Status Indications Reaction Description Data Source(s) 25 mg 10/04/2019 12:00:00 AM EDT tablet 4 TAKE ONE TABLET BY MOUTH EVERY DAY TAKE ONE TABLET BY MOUTH EVERY DAY SOLD: 10/04/2019 [facility] sodium chloride 0.9% (NS) infusion [id number] 08/30/2019 04:00:00 P M EDT Intravenous active at 100 mL/hr, Intravenous, Continuous, Starting Mon08/30/19 at 1600, For 3 hours, Post-op [facility] Medication administered onsite 10 ML Atropine Sulfate 0.1 MG/ML Prefill ed Syringe atropine sulfate injection 0.5 mg atropine sulfate injection 0.5 mg 08/30/2019 02:52:16 PM EDT 0.5 mg active 0.5 mg, Intrave nous Push, Every 5 min PRN, other, As needed, for heart rate less than 60 BPM and the patient is hemodynamically unstable and/or SBP is less than 90mmHg, Starting Mon08/30/19 at 1452, For 1 day, Post-op
Not to exceed a total of 3 mg or 0.04 mg/kg.Max of 6 doses
[facility] Medication administered onsite Acetaminophen 325 MG Oral Tablet acetaminophen (TYLENO L) 325 MG tablet 650 mg acetaminophen (TYLENOL) 325 MG tablet 650 mg 08/30/2019 02:52:16 PM EDT 650 mg Oral active 650 mg, Or al, Every 4 hours PRN, headaches, and non cardiac pain, Starting Mon08/30/19 at 1452, Post-op
"Maximum dose of acetaminophen is 4,000 mg from all sources in 24 hours."
[facility] Medication administered onsite Nitroglycerin 0.4 MG Sublingual Tablet n itroglycerin (NITROSTAT) SL tablet 0.4 mg nitroglycerin (NITROSTAT) SL tablet 0.4 mg 08/30/2019 02:52:16 P M EDT 0.4 mg Sublingual active 0.4 mg, S ublingual, Every 5 min PRN, chest pain, Starting Mon08/30/19 at 1452, Post-op
May administer every 5 minutes for 3 doses and call cardio lab MD.
[facility] Medication administered onsite iopamidol (ISOVUE-370) 76 % [id number] 08/30/2019 02:29:07 PM EDT active As needed, Starting Mon08/30/19 at 1429, Intra-Procedu re [facility] Medication administered onsite NITROGLYCERIN 0.4 MG/ML IV SOLN [id number] 08/30/2019 02:15:28 PM EDT active As needed, Starting 08/29 at 1415, Intra-Procedure [facility] Medication administered onsite 1 ML heparin sodium, porcine 1000 UNT/ML Injection hep ren (porcine) injection heparin (porcine) injection 08/30/2019 02:05:53 PM EDT active As needed, Starting Mon08/30/19 at 1405, Intra-Procedure [facility] Medication administered onsite 4 ML Verapamil hydrochloride 2.5 MG/ML Injection verap tabatha (ISOPTIN) injection verapamil (ISOPTIN) injection 08/30/2019 02:05:21 PM EDT active As needed, Starting Mon08/30/19 at 1405, Intra-Procedure [facility] Medication administered onsite lidocaine 1 % injection [id number] 08/30/2019 02:04:30 PM EDT active As needed, Starting Mon08/30/19 at 1404, Intra-Procedure [facility] Medication administered onsite 2 ML Midazolam 1 MG/ML Injection midazolam (VERSED) in jection midazolam (VERSED) injection 08/30/2019 01:58:55 PM EDT active As needed, Starting Mon08/30/19 at 1358, Intra-Procedure [facility] Medication administered onsite fentaNYL Citrate (PF) (SUBLIMAZE) injection [id number] 08/30/2019 01:58:36 PM EDT active As neede d, Starting Mon08/30/19 at 1358, Intra-Procedure [facility] Medication administered onsite 3.5 mg/g-10,000 unit/g-0.1 % 08/12/2019 12:00:00 AM EDT oint ment 3 APPLY 1/4 INCH RIBBON ON BOTH EYELIDS TWO TIMES A DAY APPLY 1/4 INCH RIBBON ON BOTH EYELIDS TWO TIMES A DAY SOLD: 08/12/2019 [facility] 1 ML evolocumab 140 MG/ML Auto-Injector [Repatha] REPATHA SURECLICK 140 MG/ML SOAJ REPATHA SURECLICK 140 MG/ML SOAJ 06/04/2019 12:00:00 AM EDT active USE 1 INJECTION UNDER THE SKIN E VERY TWO WEEKS [facility] Insurance Providers Payer name Policy type / Coverage type Policy ID Covered libertarian ID Covered libertarian's relationship to ackerman Policy Ackerman Plan Information [employer] [id number] SP [id number] [facility] HUMANA [id number] SP [id number] [employer] [id number] SP [id number] [facility] ACTIVE DUTY [id number] SP [id number] BCBS [facility] [id number] S [id number] [facility] [id number] S [id number] [facility] [id number] S [id number] [facility] [id number] S [id number] INSURANCE COVID-19 COVID Leydi C OVID [id number] Leydi [id number] [facility] [id number] S [id number] FOR LIFE [id number] S [id number] UNAVAILABLE Leydi UNAVAILA BLE [place] Claims F [id number] SELF [id number] ANSI-Commercial [id number] ANSI-Commercial [id number] [place] Claims F [id number] SELF [id number] [facility] [address] [address] [id number] S [id number] ANSI-Commercial [id number] ANSI-Commercial [id number] ANSI-Commercial [id number] ANSI-Commercial [id number] ANSI-Commercial [id number] ANSI-Commercial [id number] ANSI-Not a Secondary Insurance [id number] ANSI-Commercial [id number] ANSI-Commercial [id number] [facility] S [id number] S [id number] ANSI-Commercial [id number] ANSI-Commercial [id number] ANSI-Commercial [id number] ANSI-Commercial [id number] ANSI-Commercial [id number] ANSI-Commercial [id number] [facility] S [id number] S [id number] ANSI-Commercial [id number] ANSI-Commercial [id number] ANSI-Commercial [id number] ANSI-Commercial [id number] 'S ADMINISTRATION [id number] SP [id number] Leydi [id number] [employer] HUMANA [id number] S [id number] HGB HUMANA [id number] S [id number] [employer] OPTIONS [id number] S [id number] Prime Commercial Self PGBA COUNTS INCLUDE 234 BEDS AT THE [facility] [id number] SP [id number] FOR LIFE [id number] SP [id number] ACTIVE DUTY [id number] SP [id number] Problems, Conditions, and Diagnoses Code Display Name Description Problem Type Effective Dates Data Source(s) 82627641 Essential hypertension Essential hypertension Problem 02/04/2020 12:00:00 AM EST MEDENT ([facility], ) K76.0 [id number] Fatty liver Problem 09/16/2019 12:00:00 AM E DT eCW1 ([facility]) Z98.61 [id number] Status post percutaneous translu claudine coronary angioplasty Problem 09/02/2019 12:00:00 AM EDT eCW1 ([facility]) E66.9 [id number] Obesity (BMI 30.0-34.9) Problem 0 09/02/2019 12:00:00 AM EDT eCW1 ([facility]) I20.0 Unstable angina Unstable angina [id number] 08/30/2019 12:0 0:00 AM EDT [facility] G47.33 47259615 Obstructive sleep apnea Problem 05/07/2019 1 2:00:00 AM EST eCW1 ([facility]) Z68.30 359779828 Body mass index (BMI) of 30.0-30.9 in adebayo lt Problem 05/07/2019 12:00:00 AM EST eCW1 ([facility]) L81.9 702612861 Atypical pigmented skin lesion Problem 05/07/2019 12:00:00 AM EST eCW1 ([facility]) Z95.5 162601453 History of heart artery stent Problem 05/07/2019 12:00:00 AM EST eCW1 ([facility]) E55.9 17312059 Vitamin D deficiency Problem 05/07/2019 12:0 0:00 AM EST eCW1 ([facility]) I10 Essential hypertension Essential (primary) hypertensio n Problem 05/07/2019 12:00:00 AM EST eCW1 ([facility]) Z00.00 [id number] Encounter for genera l adult medical examination without abnormal findings Problem 05/07/2019 12:00:00 AM EST eCW1 ([facility]) M77.11 [id number] Lateral epicondylitis, right elbow Pro blem 05/07/2019 12:00:00 AM EST eCW1 ([facility]) Z00.00 186170884 Encounter for genera l adult medical examination without abnormal findings Problem 05/07/2019 12:00:00 AM EST eCW1 ([facility]) E55.9 59095954 Vitamin D deficiency Problem 05/07/2019 12:0 0:00 AM EST eCW1 ([facility]) Z95.5 454228284 History of heart artery stent Problem 05/07/2019 12:00:00 AM EST eCW1 ([facility]) G47.33 84096412 Obstructive sleep apnea Problem 05/07/2019 1 2:00:00 AM EST eCW1 ([facility]) I10 Essential hypertension Essential (primary) hypertensio n Problem 05/07/2019 12:00:00 AM EST eCW1 ([facility]) M77.11 [id number] Lateral epicondylitis, right elbow Pro blem 05/07/2019 12:00:00 AM EST eCW1 ([facility]) Z68.30 559483988 Body mass index (BMI) of 30.0-30.9 in adebayo lt Problem 05/07/2019 12:00:00 AM EST eCW1 ([facility]) L81.9 924230424 Atypical pigmented skin lesion Problem 05/07/2019 12:00:00 AM EST eCW1 ([facility]) K76.0 Fatty (change of) liver, not elsewhere c lassified FATTY (CHANGE OF) LIVER, NOT ELSEWHERE CLASSIFIED Diagnosis 03/10/2020 07:12:00 AM [facility] G47.33 Obstructive sleep apnea (adult) (pediatr ic) OBSTRUCTIVE SLEEP APNEA (ADULT) (PEDIATRIC) Diagnosis 01/07/2020 03:15:00 PM [facility] l M19.90 Unspecified osteoarthritis, unspecified site UNSPECIFIED OSTEOARTHRITIS, UNSPECIFIED SITE Diagnosis 01/07/2020 03:15:[facility] N40.0 Benign prostatic hyperplasia without low er urinary tract symptoms BENIGN PROSTATIC HYPERPLASIA WITHOUT LOWER URINRY Diagnosis 01/07/2020 03:15: [address] [facility] I10 Essential (primary) hypertension ESSENTIAL (PRIMARY) H YPERTENSION Diagnosis 01/07/2020 03:15:[address] [facility] K21.9 Gastro-esophageal reflux disease without esophagitis GASTRO-ESOPHAGEAL REFLUX DISEASE WITHOUT ESOPHAGIT Diagnosis 01/07/2020 03:15:[address] [facility] I25.83 Coronary atherosclerosis due to lipid ri ch plaque CORONARY ATHEROSCLEROSIS DUE TO LIPID RICH PLAQUE Diagnosis 01/07/2020 03:15:[address] [facility] I25.10 Atherosclerotic heart diseas e of [place] coronary artery without angina pectoris ATHSCL HEART DISEASE OF [place] CORONARY ARTERY W/O Diagnosis 01/07/2020 03:15:[address] [facility] E78.01 FAMILIAL HYPERCHOLESTEROLEMIA FAMILIAL HYPERCHOLESTERO LEMIA Diagnosis 01/07/2020 03:15:[address] [facility] R10.9 Unspecified abdominal pain UNSPECIFIED ABDOMINAL PAIN Diagnosis 09/13/2019 08:00:00 AM [facility] Z98.61 Coronary angioplasty status CORONARY ANGIOPLASTY STATU S Diagnosis 09/02/2019 02:14:00 PM [facility] E66.9 Obesity, unspecified OBESITY, UNSPECIFIED Diagnosis 09/02/2019 02:14:00 PM [facility] B35.1 Tinea unguium TINEA UNGUIUM Diagnosis 09/02/2019 02:14:00 PM [facility] I21.9 Acute myocardial infarction, unspecified Acute myocardial infarction, unspecified Diagnosis 08/30/2019 08:42:00 AM [facility] R07.2 Precordial pain Precordial pain Diagnosis 08/29/2019 10:1 1:30 AM EDT [facility] N40.0 Benign prostatic hyperplasia without low er urinary tract symptoms Benign prostatic hyperplasia without low Diagnosis 08/29/2019 10:11:30 AM EDT [facility] G47.33 Obstructive sleep apnea (adult) (pediatr ic) Obstructive sleep apnea (adult) (pediatr Diagnosis 08/29/2019 10:11:30 AM EDT [facility] K21.9 Gastro-esophageal reflux disease without esophagitis Gastro-esophageal reflux disease without Diagnosis 08/29/2019 10:11:30 AM EDT [facility] I10 Essential (primary) hypertension Essential (primary) h ypertension Diagnosis 08/29/2019 10:11:30 AM EDT [facility] M19.90 Unspecified osteoarthritis, unspecified site Unspecified osteoarthritis, unspecified Diagnosis 08/29/2019 10:11:30 AM EDT [facility] E78.01 Familial hypercholesterolemia Familial hypercholestero lemia Diagnosis 08/29/2019 10:11:30 AM EDT [facility] I25.83 Coronary atherosclerosis due to lipid ri ch plaque Coronary atherosclerosis due to lipid ri Diagnosis 08/29/2019 10:11:30 AM EDT [facility] I25.10 Atherosclerotic heart diseas e of [place] coronary artery without angina pectoris Atherosclerotic heart disease of [place] Diagnosis 08/29/2019 10:11:30 AM EDT [facility] Z12.11 Encounter for screening for malignant ne oplasm of colon ENCOUNTER FOR SCREENING FOR MALIGNANT NEOPLASM OF Diagnosis 05/07/2019 07:37:00 AM E [facility] E55.9 Vitamin D deficiency, unspecified VITAMIN D DEFI CIENCY, UNSPECIFIED Diagnosis 05/07/2019 07:37:[address] [facility] E78.00 PURE HYPERCHOLESTEROLEMIA, UNSPECIFIED P URE HYPERCHOLESTEROLEMIA, UNSPECIFIED Diagnosis 05/07/2019 07:37:00 AM [facility] Z95.5 Presence of coronary angioplasty implant and graft PRESENCE OF CORONARY ANGIOPLASTY IMPLANT AND GRAFT Diagnosis 05/07/2019 07:37:00 AM [facility] L81.9 Disorder of pigmentation, unspecified DI SORDER OF PIGMENTATION, UNSPECIFIED Diagnosis 05/07/2019 07:37:00 AM [facility] l M77.11 Lateral epicondylitis, right elbow LATERAL EPICO NDYLITIS, RIGHT ELBOW Diagnosis 05/07/2019 07:37:[address] [facility] Z00.00 Encounter for general adult medical examination without abnormal findings ENCNTR FOR GENERAL ADULT MEDICAL EXAM W/O ABNORMAL FINDINGS Diagnosis 05/07/2019 07:37:[address] [facility] Surgeries/Procedures Procedure Description Date Indications Data Source(s) ECG ROUTINE ECG W/LEAST 12 LDS TRCG ONLY W/O I&R ECG 12-LEAD Routine 08/30/2019 3:07 PM EDT 08/30/2019 07:07:16 PM EDT [facility] ECG ROUTINE ECG W/LEAST 12 LDS W/I&R ECG 12-LEAD Routine 08/30/2019 9:05 AM EDT 08/30/2019 01:05:12 PM EDT [facility] 2019 NCOV AMPLIFIED 2019 NCOV AMPLIFIED STAT 08/30/2019 8:15 AM EDT 08/30/2019 12:15:00 PM EDT [facility] Results ID Date Data Source [id number] 04/12/2020 08:30:00 AM EST [facility] Name Value Range Interpretation Code Description Data Constance rce(s) Supporting Document(s) SARS coronavirus 2 RNA Not Detected [facility] [place] This lab was ordered by [facility] and reported by [facility]. ID Date Data Source [id number] 03/12/2020 06:05:00 PM EST [facility] Name Value Range Interpretation Code Description Data Constance rce(s) Supporting Document(s) Immunoglobulin A, Qn, Serum 137 mg/dL 90-386 [facility] IgA, Subclass 1 101.5 mg/dL 73.2-301.2 [facility] IgA, Subclass 2 37.2 mg/dL 13.4-97.9 [facility] ID Date Data Source [id number] 03/11/2020 06:05:00 PM [facility] l Name Value Range Interpretation Code Description Data Constance rce(s) Supporting Document(s) H. PYLORI, IGM ABS <9.0 units 0.0-8.9 [facility] Negative <9.0 Equivocal 9.0 - 11.0 Positive > 11.0This test was developed and its performance characteristicsdetermined by [facility]. It has not been cleared orapproved by the Food and Drug Administration.Performed at: RN - [facility] [address] [id number] Director: Tere Durant MD, Phone: [phone] H. PYLORI, IGG ABS 0.30 0.00-0.79 [facility] sherron INFCE Result Units: Index Value Negative <0.80 Equivocal 0.80 - 0.89 Positive >0.89 H. PYLORI, IGA ABS <9.0 units 0.0-8.9 [facility] ital Negative <9.0 Equivocal 9.0 - 11.0 Positive >11.0 ID Date Data Source [id number] 03/12/2020 06:05:[address] [facility] Name Value Range Interpretation Code Description Data Constance rce(s) Supporting Document(s) FIBROSIS SCORE 0.22 0.00-0.21 [facility] FIBROSIS STAGE F0-F1 . [facility] STEATOSIS SCORE 0.77 0.00-0.30 [facility] STEATOSIS GRADE Comment . [facility] S3 - Marked or Severe Steato sis BOCANEGRA SCORE 0.50 0.25 [facility] BOCANEGRA GRADE Comment . [facility] N1 - Borderline or probable BOCANEGRA HEIGHT: 70 in . [facility] WEIGHT: 205 LBS . [facility] ALPHA 2-MACROGLOBULINS,QN 147 mg/dL 110-276 [facility] HAPTOGLOBIN 119 mg/dL 29-370 [facility] APOLIPOPROTEIN A-1 130 mg/dL 101-178 [facility] BILIRUBIN,TOTAL 0.4 mg/dL 0.0-1.2 [facility] GGT 64 IU/L 0-65 [facility] ALT 31 IU/L 0-55 [facility] AST 21 IU/L 0-40 [facility] CHOLESTEROL 228 mg/dL 100-199 H [facility] GLUCOSE 97 mg/dL 65-99 [facility] TRIGLYCERIDES 270 mg/dL 0-149 H [facility] INTERPRETATIONS: Comment . [facility] l Quantitative results of 10 biochemicals in combination withage, gender, height, and weight, are analyzed using acomputational algorithm to provide a quantitative surrogatemarker (0.0-1.0) of liver fibrosis (Metavir F0-F4), hepaticsteatosis (0.0-1.0, S0-S3), and Non-Alcoholic Steato-Hepatitis (BOCANEGRA) (0.0-0.75, N0-N2). The absence of steatosis(S<0.38) precludes the diagnosis of BOCANEGRA.Fibrosis marker: In a study of 171 Non-Alcoholic FattyLiver Disease (NAFLD) patients where 23% had significantNAFLD fibrosis (Metavir F2-F4) and 11% had cirrhosis byliver biopsy, a fibrosis result of >0.3 yielded asensitivity of 83% and a specificity of 78% for thedetection of significant fibrosis(1).Steatosis Marker: In a population of 744 patients (583 HCV,18 HBV, 69 NAFLD, and 74 alcoholic disease patients), where36% had significant steatosis (>5%) on a liver biopsy, asteatosis score >0.5 had a sensitivity of 71% and aspecificity of 72% for identification of significantsteatosis(2).BOCANEGRA marker: In a population of 257 NAFLD patients, where62% had at least some BOCANEGRA by liver biopsy, a prediction ofNASH had a sensitivity of 88% for identifying BOCANEGRA and aspecificity of 50%(3). FIBROSIS SCORING Comment . [facility] l <0.21 = Stage F0 - No fibrosis0.21 - 0.27 = Stage F0 - F10.27 - 0.31 = Stage F1 - Portal fibrosis0.31 - 0.48 = Stage F1 - F20.48 - 0.58 = Stage F2 - Bridging fibrosis with few septa0.58 - 0.72 = Stage F3 - Bridging fibrosis with many septa0.72 - 0.74 = Stage F3 - F4 >0.74 = Stage F4 - Cirrhosis STEATOSIS GRADING: Comment . [facility] < 0.30 = S0 - No Steatosis0.30 to 0.38 = S0 - S10.38 to 0.48 = S1 - Minimal Steatosis0.48 to 0.57 = S1 - S20.57 to 0.67 = S2 - Moderate Steatosis0.67 to 0.69 = S2 - S3 > 0.69 = S3 - Marked or Severe Steatosis BOCANEGRA SCORING Comment . [facility] 0.25 = N0 - Not NASH0.50 = N1 - Borderli ne or probable NASH0.75 = N2 - BOCANEGRA LIMITATIONS: Comment . [facility] BOCANEGRA FibroSure is recommended for patien ts with suspectednon-alcoholic fatty liver disease. It is not recommendedfor patients with other liver diseases. It is also notrecommended in patients with Gilbert Disease, acutehemolysis, acute viral hepatitis, drug induced hepatitis,genetic liver disease, autoimmune hepatitis and/or extra-hepatic cholestasis. Any of these clinical situations maylead to inaccurate quantitative predictions of fibrosis. COMMENT: Comment . [facility] This test was developed and its performa nce characteristics determinedby [facility]. It has not been cleared or approved by the Food and DrugAdministration. The FDA has determined that such clearance orapproval is not necessary.For questions regarding this report please contactmount[facility] view [facility] medical centertomer service at .References:1. Jessica Sosa. et al. Diagnostic Value of Biochemical Markers (FibroTest) for the prediction of Liver Fibrosis in patients with Non-Alcoholic Fatty Liver Disease. BMC Gastroenterology 2006; 6:6.2. Micky Lujan. et al. The Diagnostic Value of Biomarkers (Steato Test) for the Prediction of Liver Steatosis. Comparative Hepatol. 2005; 4:10.3. Micky Lujan, Carrie Lopez, et al. Diagnostic value of biochemical markers (BOCANEGRA TEST) for the prediction of non alcohol steato hepatitis in patients with non- alcoholic fatty liver disease. BMC Gastroenterology 2006; 6:34 doi:10.1186/5425-848H-5-34.Performed at: [address] [id number] Director: La Paniagua MD, Phone: [phone] ID Date Data Source [id number] 03/12/2020 12:09:00 PM [facility] Name Value Range Interpretation Code Description Data Constance rce(s) Supporting Document(s) T-TRANSGLUTAMINASE (TTG) IGA <2 U/mL 0-3 [facility] Negative 0 - 3 Weak Positive 4 - 10 Positive >10 Tissue Transglutaminase (tTG) has been identified as the endomysial antigen. Studies have demonstr- ated that endomysial IgA antibodies have over 99% specificity for gluten sensitive enteropathy.Performed at: [address] [id number] Director: Tere Durant MD, Phone: [phone] ID Date Data Source [id number] 03/11/2020 06:05:00 PM EST [facility] Name Value Range Interpretation Code Description Data Constance rce(s) Supporting Document(s) H. pylori, IgG Abs 0.30 Index Value 0.00-0.79 [facility] Negative <0.80 Equivocal 0.80 - 0.89 Positive >0.89 H. pylori, IgA Abs 0.0-8.9 [facility] Negative <9.0 Equivocal 9.0 - 11.0 Positive >11.0 H pylori, IgM Abs 0.0-8.9 [facility] Negative <9.0 Equivocal 9.0 - 11.0 Positive >11.0 This test was developed and its performance characteristicsdetermined by [facility]. It has not been cleared or approvedby the Food and Drug Administration. ID Date Data Source [id number] 03/12/2020 12:05:00 PM EST [facility] Name Value Range Interpretation Code Description Data Constance rce(s) Supporting Document(s) t-Transglutaminase (tTG) IgA 0-3 [facility] Negative 0 - 3 Weak Positive 4 - 10 Positive >10 Tissue Transglutaminase (tTG) has been identified as the endomysial antigen. Studies have demonstr- ated that endomysial IgA antibodies have over 99% specificity for gluten sensitive enteropathy. ID Date Data Source [id number] 03/12/2020 06:05:00 PM EST [facility] Name Value Range Interpretation Code Description Data Constance rce(s) Supporting Document(s) Fibrosis Score 0.22 0.00-0.21 Above high normal [facility] Fibrosis Stage F0-F1 [facility] Steatosis Score 0.77 0.00-0.30 Above high normal [facility] Steatosis Grade [facility] S3 - Marked or Severe Steato sis BOCANEGRA Score 0.50 0.25 Above high normal [facility] BOCANEGRA Grade [facility] N1 - Borderline or probable BOCANEGRA Height: 70 in [facility] Weight: 205 LBS [facility] Alpha 2-Macroglobulins, Qn 147 mg/dL 110-276 [facility] Haptoglobin 119 mg/dL 29-370 [facility] Apolipoprotein A-1 130 mg/dL 101-178 [facility] Bilirubin, Total 0.4 mg/dL 0.0-1.2 [facility] GGT 64 IU/L 0-65 [facility] ALT (SGPT) P5P 31 IU/L 0-55 [facility] AST (SGOT) P5P 21 IU/L 0-40 [facility] Cholesterol, Total 228 mg/dL 100-199 Above high normal [facility] Glucose, Serum 97 mg/dL 65-99 [facility] Triglycerides 270 mg/dL 0-149 Above high normal [facility] Interpretations: [facility] Quantitative results of 10 biochemicals in combination withage, gender, height, and weight, are analyzed using acomputational algorithm to provide a quantitative surrogatemarker (0.0-1.0) of liver fibrosis (Metavir F0-F4), hepaticsteatosis (0.0-1.0, S0-S3), and Non-Alcoholic Steato-Hepatitis (BOCANEGRA) (0.0-0.75, N0-N2). The absence of steatosis(S<0.38) precludes the diagnosis of BOCANEGRA. Fibrosis marker: In a study of 171 Non-Alcoholic FattyLiver Disease (NAFLD) patients where 23% had significantNAFLD fibrosis (Metavir F2-F4) and 11% had cirrhosis byliver biopsy, a fibrosis result of >0.3 yielded asensitivity of 83% and a specificity of 78% for thedetection of significant fibrosis(1). Steatosis Marker: In a population of 744 patients (583 HCV,18 HBV, 69 NAFLD, and 74 alcoholic disease patients), where36% had significant steatosis (>5%) on a liver biopsy, asteatosis score >0.5 had a sensitivity of 71% and aspecificity of 72% for identification of significantsteatosis(2). BOCANEGRA marker: In a population of 257 NAFLD patients, where62% had at least some BOCANEGRA by liver biopsy, a prediction ofNASH had a sensitivity of 88% for identifying BOCANEGRA and aspecificity of 50%(3). Fibrosis Scoring: [facility] <0.21 = Stage F0 - No fibrosis0.21 - 0.27 = Stage F0 - F10.27 - 0.31 = Stage F1 - Portal fibrosis0.31 - 0.48 = Stage F1 - F20.48 - 0.58 = Stage F2 - Bridging fibrosis with few septa0.58 - 0.72 = Stage F3 - Bridging fibrosis with many septa0.72 - 0.74 = Stage F3 - F4 >0.74 = Stage F4 - Cirrhosis Steatosis Grading [facility] < 0.30 = S0 - No Steatosis0.30 to 0.38 = S0 - S10.38 to 0.48 = S1 - Minimal Steatosis0.48 to 0.57 = S1 - S20.57 to 0.67 = S2 - Moderate Steatosis0.67 to 0.69 = S2 - S3 > 0.69 = S3 - Marked or Severe Steatosis BOCANEGRA Scoring [facility] 0.25 = N0 - Not NASH0.50 = N1 - Borderli ne or probable NASH0.75 = N2 - BOCANEGRA Limitations: [facility] BOCANEGRA FibroSure is recommended for patien ts with suspected non-alcoholic fatty liver disease. It is not recommended for patientswith other liver diseases. It is also not recommended in patientswith Gilbert Disease, acute hemolysis, acute viral hepatitis, druginduced hepatitis, genetic liver disease, autoimmune hepatitis and/orextra-hepatic cholestasis. Any of these clinical situations may leadto inaccurate quantitative predictions of fibrosis. Comment: [facility] This test was developed and its performa nce characteristics determinedby [employer] [employer] It has not been cleared or approved by the Food and DrugAdministration. The FDA has determined that such clearance orapproval is not necessary. For questions regarding this report please contactcustomer service at . References: 1. Jessica Gross al. Diagnostic Value of Biochemical Markers (FibroTest) for the prediction of Liver Fibrosis in patients with Non-Alcoholic Fatty Liver Disease. BMC Gastroenterology 2006; 6:6.2. Micky Lujan. et al. The Diagnostic Value of Biomarkers (Steato Test) for the Prediction of Liver Steatosis. Comparative Hepatol. 2005; 4:10.3. Micky Lujan, Carrie Lopez, et al. Diagnostic value of biochemical markers (BOCANEGRA TEST) for the prediction of non alcohol steato hepatitis in patients with non- alcoholic fatty liver disease. BMC Gastroenterology 2006; 6:34 doi:10.1186/3774-170I-9-34. ID Date Data Source [id number] 03/11/2020 08:11:00 AM [facility] FAX [phone]: 5'10W:205 Name Value Range Interpretation Code Description Data Constance rce(s) Supporting Document(s) IRON 85 ug/dL 65-175 [facility] ID Date Data Source [id number] 03/10/2020 08:03:00 AM EST [facility] FAX [phone]: 5'10W:205 Name Value Range Interpretation Code Description Data Constance rce(s) Supporting Document(s) CREATININE 1.22 mg/dL 0.7-1.3 [facility] ID Date Data Source [id number] 03/10/2020 08:03:00 AM EST [facility] FAX [phone]: 5'10W:205 Name Value Range Interpretation Code Description Data Constance rce(s) Supporting Document(s) TIBC 377 ug/dL 250-450 [facility] ID Date Data Source [id number] 03/10/2020 08:03:00 AM EST [facility] FAX [phone]: 5'10W:205 Name Value Range Interpretation Code Description Data Constance rce(s) Supporting Document(s) CHOLESTEROL 231 mg/dL 0-200 H [facility] TRIGLYCERIDES 243 mg/dL 0-150 [facility] LDL CHOLESTEROL 143 mg/dL 0-100 [facility] HDL CHOLESTEROL 39 mg/dL 40-60 L [facility] CHOL/HDL RATIO 5.9 0.0-5.0 H [facility] ID Date Data Source [id number] 03/10/2020 08:03:00 AM EST [facility] FAX [phone]: 5'10W:205 Name Value Range Interpretation Code Description Data Constance rce(s) Supporting Document(s) AST 18 U/L 15-37 [facility] ALT 37 U/L 12-78 [facility] ALKALINE PHOSPHATASE 69 U/L 46-116 [facility] pital TOTAL BILIRUBIN 0.5 mg/dL 0.2-1.0 [facility] DIRECT BILIRUBIN 0.1 mg/[facility] PROTEIN 7.4 g/dl 6.4-8.2 [facility] ALBUMIN 4.2 gm/dL 3.4-5.0 [facility] ID Date Data Source [id number] 03/10/2020 08:03:00 AM [facility] FAX [phone]: 5'10W:205 Name Value Range Interpretation Code Description Data Constance rce(s) Supporting Document(s) GLOMERULAR FILTRATION RATE 61 mL/min [facility] GFR IS CALCULATED IN mL/min/1.73m2 SUHA L FUNCTION: >90MILDLY DECREASED: 60-89MILDY TO MODERATELY DECREASED: 45-59 MODERATELY TO SEVERELY DECREASED: 30-44SEVERELY DECREASED: 15-29RENAL FAILURE: <15 ID Date Data Source [id number] 03/10/2020 08:03:00 AM [facility] FAX [phone]: 5'10W:205 Name Value Range Interpretation Code Description Data Constance rce(s) Supporting Document(s) BLOOD UREA NITROGEN 11 mg/dL 7-18 [facility] ital ID Date Data Source [id number] 03/10/2020 07:24:00 AM [facility] FAX [phone]: 5'10W:205 Name Value Range Interpretation Code Description Data Constance rce(s) Supporting Document(s) WHITE BLOOD COUNT 4.9 K/mm3 4.0-10.0 [facility] al RED BLOOD COUNT 5.11 M/mm3 4.50-6.00 [facility] HEMOGLOBIN 15.1 gm/dL 14.0-18.0 [facility] HEMATOCRIT 43.2 % 42.0-54.0 [facility] MEAN CELL VOLUME 84.5 fl 80-96 [facility] MEAN CORPUSCULAR HEMOGLOBIN 29.5 pg 27.0-31.0 [facility] MEAN CORPUSCULAR HGB CONC 35.0 g/dl 32.0-36.0 [facility] RED CELL DISTRIBUTION WIDTH 12.3 % 10.0-14.5 [facility] PLATELET COUNT 285 K/mm3 172-450 [facility] MEAN PLATELET VOLUME 8.7 fl 9.0-13.0 L [facility] pital GRAN % 56.0 % 50-80.0 [facility] IG% 0.0 % 0.0-0.2 [facility] LYMPH % 33.1 % 25.0-50.0 [facility] MONO % 7.6 % 2.0-10.0 [facility] EOS % 2.7 % 0-5.0 [facility] BASO % 0.6 % 0.0-2.0 [facility] GRAN # 2.7 K/mm3 2.0-8.00 [facility] IG# 0.0 K/mm3 0.0-0.2 [facility] LYMPH # 1.6 K/mm3 1.0-5.0 [facility] MONO # 0.4 K/mm3 0.10-1.20 [facility] EOS # 0.1 K/mm3 0.0-0.5 [facility] BASO # 0.0 K/mm3 0.0-0.2 [facility] ID Date Data Source [id number] 02/21/2020 03:11:00 PM EST [facility] Name Value Range Interpretation Code Description Data Constance rce(s) Supporting Document(s) SARS coronavirus 2 [facility] by [facility] and reported by [facility]. ID Date Data Source [id number] 09/13/2019 08:57:00 AM EDT [facility] DATE OF EXAMINATION: 09/13/2019 7:55 EDT US ABDOMINAL COMPLETE COMPARED TO: No priors HISTORY: Pain and discomfort Real-time ultrasound imaging was performed utilizing B-mode/ordonez scale and colorDoppler imaging where applicable. Mild fatty infiltration of liver is noted. There is no intra or extrahepaticbiliary dilation. The gallbladder appears normal, revealing no signs ofgallstones or gallbladder wall thickening. The common bile duct measures 4mm.The right kidney measures 12.6cm and the left kidney measures 11.9cmlongitudinally. Both kidneys display normal homogeneous echotexture throughoutand show no hydronephrosis. The visualized portions of the pancreas, spleen, theabdominal aorta and IVC are normal in appearance. IMPRESSION: Mild fatty infiltration of liver with mild hepatomegaly at 17.6 cm. Electronically signed in PS360 by: Marge Lowe M.D. 09/13/2019 8:51 EDT Name Value Range Interpretation Code Description Data Constance rce(s) Supporting Document(s) ID Date Data Source [id number] 08/30/2019 07:13:34 PM EDT [facility] Name Value Range Interpretation Code Description Data Constance rce(s) Supporting Document(s) &PDF [employer] BNXYAp5nYdCMGkRb09/NTIgpMGCnk0WcIMlkBXn3TLphNQWkJ2BzzYhaONQDXx5CVfvXFHHKNSEIOP7q oRX [file] m4zW1LA3WawxP14y/imK4fnBplnEnoLyHcrU/6/BRANCH OFFICE ADMINISTRATOR/0lVNYf/K42R2zS7oUEuo1+izQldP8EZwMqrJnl [file] securities [file] securities [file] [facility] [file] AgICAgICAgICAgICAgICAgICAgICAgICAgICAgICAg ICAgICAgICAgICAgICAgICAgICAgICAgICAgICAgICAgICAgICAgICAgICAgICAgICAgICAgICAgICAg ICANCiAgICAgICAgICAgICAgICAgICAgICAgICAgICAgICAgICAgICAgICAgICAgICAgICAgICAgICAg ICAgICAgICAgICAgICAgICAgICAgICAgICAgICAgIC AgICAgICAgICAgICANCiAgICAgICAgICAgICAgICAgICAgICAgICAgICAgICAgICAgICAgICAgICAgIC AgICAgICAgICAgICAgICAgICAgICAgICAgICAgICAgICAgICAgICAgICAgICAgICAgICAgICANCiAgIC AgICAgICAgICAgICAgICAgICAgICAgICAgICAgICAg ICAgICAgICAgICAgICAgICAgICAgICAgICAgICAgICAgICAgICAgICAgICAgICAgICAgICAgICAgICAg ICAgICANCiAgICAgICAgICAgICAgICAgICAgICAgICAgICAgICAgICAgICAgICAgICAgICAgICAgICAg ICAgICAgICAgICAgICAgICAgICAgICAgICAgICAgIC AgICAgICAgICAgICAgICANCiAgICAgICAgICAgICAgICAgICAgICAgICAgICAgICAgICAgICAgICAgIC AgICAgICAgICAgICAgICAgICAgICAgICAgICAgICAgICAgICAgICAgICAgICAgICAgICAgICAgICANCi AgICAgICAgICAgICAgICAgICAgICAgICAgICAgICAg ICAgICAgICAgICAgICAgICAgICAgICAgICAgICAgICAgICAgICAgICAgICAgICAgICAgICAgICAgICAg ICAgICAgICANCiAgICAgICAgICAgICAgICAgICAgICAgICAgICAgICAgICAgICAgICAgICAgICAgICAg ICAgICAgICAgICAgICAgICAgICAgICAgICAgICAgIC AgICAgICAgICAgICAgICAgICANCiAgICAgICAgICAgICAgICAgICAgICAgICAgICAgICAgICAgICAgIC AgICAgICAgICAgICAgICAgICAgICAgICAgICAgICAgICAgICAgICAgICAgICAgICAgICAgICAgICAgIC ANCiAgICAgICAgICAgICAgICAgICAgICAgICAgICAg ICAgICAgICAgICAgICAgICAgICAgICAgICAgICAgICAgICAgICAgICAgICAgICAgICAgICAgICAgICAg ICAgICAgICAgICANCjw/cPZiC8sgoVZkgjZ1G9hpMz6TNa4CVG0de0UyCARvDKxarlOuQanXYdYjNJOl UvyNEip4PIpeDB1NgCCxJ1UpM2RcJPppDI0PEPViCA ClkELmXDClKQFvCfX4FYPwLCrdOA6XgFLvHHibHLGoWEZgUwPlXZAbIBRxENLiYHRpATGYZPDzMSAuYs CgVROhNQZzIR4GOFCuE014oaYyGj1DUf7JTgTySN5cwd0NGbQxLFVpWdpCQvr2DFngQI9NcFWrhAZtNv KaOXTTYpXyX6ewl9GrAtPpAWBOCIceER0Zj0FhqQIp DQo+Cv5UQF1yl5VxDEjdNxZzRY9agz1UKVwGIbWqQ0AvhXerUSxwhNylqrQcTA4PJMUnSWQlmGYwKGbv LFYKIV0VTEwdZFI5JzXmteSowMMyHZkkOI4XMLRirfOjLtAeZWLTBJx+Qu0TFN4qb0QcEJxwDALjYY2o kg4IRDhTDxDaI8W2eQDjM9X2QHppVu6IGUIlDADgHy TcEKLYPYqwLY9XDU8wfaE1BT8NrIMfWKWiLPGesVDePEd1V90thPOmGUipTG7TWWT+Antonio+Yx9JDUWiIY LmYXEzXnTrYKKNUzEnP3YzI4FYw3SpM7OzHP29fZulpcMjDCfgDF0PHU2dGKJeEEXBBM1QaMWnaA1smk MdFbYfLHUZJqSyN86gnYKxTREsFKSfYQRpAv1YCBRf W3ZjlxHglAvdglPiQBOcTDRYQX4PUZhrexTljEDrfCshKB42iJlnGI7ZWg8YBgCuQO7fka5TyOSrAl7Y FVAsPW5WVUYkBZAcFDRkNKF4ZZPmWuUcWTsuCFMmFXYwLHP1MCQoDWVrKS6IIiLoFOQsJVI0DZwcLITp NZTjyw1YAAUdKSJ6JOT1AVPjSFGjQEOnPOgsJOCfLA FpXCsrUWEvLGKiVX0UOeReLQPyJOYbORDbJWThXWBvqc2XAKQkVDHsVyW1ZDBeGYKbBLNbPUifPVXgHZ W0WlO0IJHjNYHdRG0AJuIbKAJsREN2ZZrtLSFhTTXrhj1VDLMkOMWaPbTiZSJhQEEmIHLiQZnuHOBuTJ C4XyJ8QULqQOEiQD2ASgJfGAZhHChiNJLgLWEbHEYf xq8GYYVeRTEbPJB1WMUhHVEfSGCsBRfsPGBzOYCpLBPyRVOrEOBdGN2JXbXiEHWcLND3StDnGKHaHFUd xy2VNBIwXCAuAVftLeCoZHBzHWQfQEodOKOsQQBzOYDjBEEuEUJfAZ1POoYfUNUsWUR1JFIwJTLuIMLq ej6IMSDzLBByOxF6CHVkUXCpIKZeJTwnNDMzYYXfTs ssNOZrGAWwMV4RRmKwRMHvZTTlFNDxUDAkORCacs6BMMXgCZVzHVK4ZtCfJGScNFZbBNkyAOOxEUZ4Qy WvFTSbRDSyEK5YIuAdAMMmWFf7JnUxGFCnQTBngl6KMDJnPAOzJHB6WpVmTKAnOMRfLRfpZFHkXWKvAi r5EMKwRUUeQX2QHoLdSVFuFGg6LrXnCZGeJBZpbw9A ABMjXTS8VAX0AOOkHAYrOSOvMLovEJFaDCj3Ojk3QJSeHOBuYO2LRyWmYKMwQwe0FkNhSXKySOBhjy5W XMEhKPV8DpyuHePwBRMzLVVsZRzdYWUlAHy2BuTdMNLrVACoAX8YMaLwSVGzJAo5CoJmTANqHOFpcx7D UQChKPS3NQw8FqHkQRIwAWPqXLsjYRXcFGf7AJjsPE GhCSHnIX4PFtUdSMkkRNZDXvk0YKszS8q7FRYgMM0XA9Qeb6EjDaNbHMYIIAtfOM1zlbYfAGYcXo2RF2 bPVtl4EPR9IDqdLvEuHOBtQkZeTlOeLTD9RQPqGROvDEW7MG0fSXgmPrb8V6HfFDQ0WRIlJkWsN3LkPj SwJbEwWPP8CuM0QjCqJW5SPp9QCyV2RZT6iRYcQe2ILJhxDbCQFgHdAH3TFJv= ID Date Data Source [id number] 08/30/2019 03:40:41 PM EDT [facility] Name Value Range Interpretation Code Description Data Constance rce(s) Supporting Document(s) EKG [employer] ZHBFEl5cMjZDZfJry9VsKxNiLJVyGE1kmsb5Z8O0rCIgJ6BirQHzi4bwU3IwL5OcZHIpJQYEPQ8XzTZw jb2 [file] ID Date Data Source [id number] 08/30/2019 09:50:31 AM EDT [facility] Name Value Range Interpretation Code Description Data Constance rce(s) Supporting Document(s) EKG [employer] EFGJCx6nAcQYSkVtw4VpYvSgKAFrSP0lhcp3P6D7mOWwP1IlvIQbs3aoV8CpY5EbWOKdWGOJXD0ZfKBu jb2 [file] +Av//a//9I8/WnOPn/76x//553/63//engineer system administrator//4f/94Gm6hzW3n+mct/kw42JD056cRw+5a/Ed6WVCoUCP4 [file] ayBTZXJpZXMpIAogICAgICAgICAgICAvUHJvZHVjZX UiCM4RR4PcXNEvLSQCOFL6z3ZoVYJkfrhplatjWn3umqNsDar+OepjGHEaj8TfRMhcM6V0gPCdS4OvV5 YjPJ5MpSGkEGspTFUmNFQpKSTlU654hoViPO8+ZW4yp2VyZtxuJZCBTSVaUKQnBSTcVCP8AmUiWMEuNH EuHCYpRsL6HlAjOnHQYFAbCDX6TvCaJGWcZSHzONFz HDqyFASpJZHjFaW2VQAuCAUpHM2fUyXsYCEiXBM1DmwdXSSfOLLrspCTEZFaZEFcBGHmCLK0LVQrPJEd OKwwXPVpTQDrIOD8OTNvJNHdBA9fUbCnLZUtTIGbUtdqAZOpZCPtflYXASHqCWPuHAI9EzWbIKLwVDWv JNwzOQFtEYQrHyg0MKKcKRNePU8yIyOiDHKbHDQ9UG wrHCNiFWVmwqVEHXOiMAHzMFGqYsIkFGIzGZXlBPhxNDLcSPOsDiSeQBVeJCStBD2kNaCnSXTkMZB8KY ZmHVOyIYBzflOITUSwWXLaEAf6WQUyRUBgXTMiARtjXWIzWJHxWUF4POSyTJLnZT1rAhIvJQPyGVCxNU HiTPLbERCphwVQWAAxEWVcVTQ3XMYlNVPhQCMrQWpm ZRFkIVLtBpe9ARXgSVBvDS7xTqLmFHIpENZ9NQTwZNDxUGHzcoZNBGNmWYU1QTE0IQFjWZVcHZJwKPur LDFwVLIjJpW1BXOoUYAnFT9yMzFpPDNkIUZ7UpAuAZCiWUHbgjJACZEsMTErXTT4TwYbLHDaNPAcXRhb STZaUCNhLBNfIRS7AUG9WJZwNwClFQykSZYGPRaIB4 TqokKzUtXPA2loBn5iHyIlDFIFY3Yfu8YvNSTlOSNOOz8+HiH8SVW3xXGiNoz6LnI4EXksSXMXJr== ID Date Data Source [id number] 08/30/2019 08:15:00 AM EDT [facility] Name Value Range Interpretation Code Description Data Constance rce(s) Supporting Document(s) SARS coronavirus 2 RNA [Presence] in Res piratory specimen by FRANKY with probe detection [facility] This lab was reported by [facility] ID Date Data Source [id number] 08/30/2019 11:56:42 AM EDT [facility] Name Value Range Interpretation Code Description Data Constance rce(s) Supporting Document(s) SPECIMEN DESCRIPTION Lab [facility] COVID19 RESULT (NDET) [facility] THIS ASSAY AMPLIFIES AND DETECTSTHE TARG ET RNA USING REAL-TIME PCR.NEGATIVE 2019_NCOV RT-PCR RESULTS DONOT PRECLUDE 2019_NCOV INFECTION ANDSHOULD NOT BE USED THE SOLE BASISFOR PATIENT MANAGEMENT DECISIONS. COMMENT [facility] UNDER AN EMERGENCY USE AUTHORIZATION(EUA ) FOR THE DETECTION AND/OR DIAGNOSISOF THE VIRUS THAT CAUSES COVID-19.EMAILED TO [facility] [address] AT 0700 [place] [id number] ZG [id number]. ID Date Data Source [id number] 08/29/2019 01:07:[address] [facility] Name Value Range Interpretation Code Description Data Constance rce(s) Supporting Document(s) Sodium 140 mmol/L 136-145 Normal (applies to non-numeric resul ts) [facility] Potassium 3.5-5.1 Normal (applies to non-numeric resul ts) [facility] Chloride 102 mmol/L 98-107 Normal (applies to non-numeric resul ts) [facility] Carbon Dioxide CO2 21-32 Normal (applies to non-numer ic results) [facility] Anion Gap 5.0-16.0 Normal (applies to non-numeric resul ts) [facility] BUN 10 mg/dL 7-18 Normal (applies to non-numeric results) [facility] Creatinine,Serum 0.8-1.5 Normal (applies to non-numeric results) [facility] GFR >60 Normal (applies to non-numeric results) [facility] Glucose Level 95 mg/dL 60-99 Normal (applies to non-numeric re sults) [facility] Reference range is only applicable when patient is fasting Note the following drug interference: Sulfasalazine Sulfapyridine Can see falsely depressed Can see falsely elevated result with up to 17% results with up to 11% decrease in measurement increase in measurement Recommend patients be collected for this test prior to administration of either drug. Calcium 8.5-10.1 Normal (applies to non-numeric resul ts) [facility] Bilirubin,Total 0.1-1.9 Normal (applies to non-numeric results) [facility] SGOT(AST) 18 U/L 15-37 Normal (applies to non-numeric resul ts) [facility] Note the following drug interference: Sulfasalazine Sulfapyridine Can see falsely depressed Can see falsely elevated result with up to 10% results with up to 10% decrease in measurement increase in measurement Recommend patients be collected for this test prior to administration of either drug. SGPT(ALT) 40 U/L 12-78 Normal (applies to non-numeric resul ts) [facility] Note the following drug interference: Sulfasalazine Sulfapyridine Can see falsely depressed Can see falsely elevated result with up to 29% results with up to 10% decrease in measurement increase in measurement Recommend patients be collected for this test prior to administration of either drug. Alkaline Phosphatase 74 U/L 38-126 Normal (applies to non-num jose results) [facility] can increase Alkaline Phosp le vels up to 2 times the normal adult value. Normal values for children and adolescents are 2 to 3 times the normal adult value. Total Protein 6.0-8.2 Normal (applies to non-numeric re sults) [facility] Albumin Level 3.4-5.0 Normal (applies to non-numeric re sults) [facility] ID Date Data Source [id number] [facility]2019 [facility] Value Range Interpretation Code Description Data Constance rce(s) Supporting Document(s) Lipase 61 U/L 73-393 Below low normal [facility] spital ID Date Data Source [id number] 08/29/2019 12:11:[address] [facility] Name Value Range Interpretation Code Description Data Constance rce(s) Supporting Document(s) White Blood Count 3.5-10.5 Normal (applies to non-numeri c results) [facility] Red Blood Count 4.30-5.70 Normal (applies to non-numeric results) [facility] Hemoglobin 13.5-17.5 Normal (applies to non-numeric resul ts) [facility] Hematocrit 38.8-50.0 Normal (applies to non-numeric resul ts) [facility] Mean Corpuscular Volume 81.2-95.1 Normal (applies to non- numeric results) [facility] Mean Corpuscular Hgb 25.6-32.2 Normal (applies to non-num jose results) [facility] Mean Corpuscular Hgb Conc 32.0-36.0 Normal (applies to no n-numeric results) [facility] Red Cell Distribution Width 11.8-15.6 Normal (appli es to non-numeric results) [facility] Platelet Count 318 x10 3/uL 150-450 Normal (applies to non-numeric results) [facility] Mean Platelet Volume 9.4-12.4 Below low normal [facility] Neutrophils% (Auto) 31.0-71.0 Normal (applies to non-nume josselin results) [facility] Lymphocytes% (Auto) 20.0-55.0 Normal (applies to non-nume josselin results) [facility] Monocytes% (Auto) 4.0-12.0 Normal (applies to non-numeri c results) [facility] Eosinophils% (Auto) 1.0-8.0 Normal (applies to non-nume josselin results) [facility] Basophils% (Auto) 0.0-2.0 Normal (applies to non-numeri c results) [facility] Immature Granulocytes% (Auto) 0.0-2.0 Normal (chucky lies to non-numeric results) [facility] Neutrophils# (Auto) 1.50-6.20 Normal (applies to non-nume josselin results) [facility] Lymphocytes# (Auto) 1.20-4.00 Normal (applies to non-nume josselin results) [facility] Monocytes# (Auto) 0.00-0.90 Normal (applies to non-numeri c results) [facility] Eosinophils# (Auto) 0.00-0.50 Normal (applies to non-nume josselin results) [facility] Basophils# (Auto) 0.00-0.20 Normal (applies to non-numeri c results) [facility] Immature Granulocytes# (Auto) 0.00-7.00 No rmal (applies to non-numeric results) [facility] ID Date Data Source [id number] 08/29/2019 11:30:[address] [facility] Name Value Range Interpretation Code Description Data Constance rce(s) Supporting Document(s) Troponin I 0.000-0.056 Normal (applies to non-numeric resu lts) [facility] ID Date Data Source [id number] 03/08/2019 06:14:47 PM EST [facility] Name Value Range Interpretation Code Description Data Constance rce(s) Supporting Document(s) &PDF [facility] RMQELy4lSrHHBrFs45/HTEhuRSGuq5QuWUafPQc7EOpaNJWdG1LtdPszNBKJGd2EYvnMWRADEFBVTH3n FcG [file] AgICAgICAgICAgICAgICAgICAgICAgICAgICAgICAgICAgICAgICAgICAgICAgICAgICAgICAgICAgIC ZpEEMoBOXiXACnLOMyARCrYMHuFCFxYYOsQKRzJHHuDA8GDSUnCPThMGAlPTRwKTPjLMBkIFKfPMQmXA AgICAgICAgICAgICAgICAgICAgICAgICAgICAgICAg GHOkKDTtHOBhDLYqTVWqADWnLLKbESIpHTCiOKUjFQWzIZPvZSRlDNWkXP0NIDAlNAScHLEwAEUqBMRm ICAgICAgICAgICAgICAgICAgICAgICAgICAgICAgICAgICAgICAgICAgICAgICAgICAgICAgICAgICAg WHXmXGTjEHUpCHZzBYZbVACcXCOdDJYjDP3EOWTcUB AgICAgICAgICAgICAgICAgICAgICAgICAgICAgICAgICAgICAgICAgICAgICAgICAgICAgICAgICAgIC MbNOPtOLFgWBEyOYSfZJGwYWLfIJMcGXUsQOFgCMKlENQaHD6DDFQhZBExCJSvFNQqPTYtCNDsAIGxTG AgICAgICAgICAgICAgICAgICAgICAgICAgICAgICAg ZPXkIMCuNVEmISOjFBBxHDDcATWaZRGdDSNrODQxQQRhSJEcNCQxQTNrIKQwSY1IGWSrOOSnZAFrKABb ICAgICAgICAgICAgICAgICAgICAgICAgICAgICAgICAgICAgICAgICAgICAgICAgICAgICAgICAgICAg JNBaRIXpSCBvCPVwSJWgHCOvCDWbMVMxPLTkMO0NSZ AgICAgICAgICAgICAgICAgICAgICAgICAgICAgICAgICAgICAgICAgICAgICAgICAgICAgICAgICAgIC LlKYJuEIExBAVrRMSgESGnGLHcBREtSADhWGWbAIQlIWHzPWFqMO5KTBEhXFJwZKDhZJIrDHTfLFJaHE AgICAgICAgICAgICAgICAgICAgICAgICAgICAgICAg PUUaUTUxSYFqHPHmRWQdUJUfPGVsWTFiHLIxITSnLIVsSYWkZGRwHSZgHHBwDMQgLR3YTPFgCTMpZMYx ICAgICAgICAgICAgICAgICAgICAgICAgICAgICAgICAgICAgICAgICAgICAgICAgICAgICAgICAgICAg ICAgICAgICAgICAgICAgICAgICAgICAgICAgICAgIA 0KICAgICAgICAgICAgICAgICAgICAgICAgICAgICAgICAgICAgICAgICAgICAgICAgICAgICAgICAgIC TjCXFvPTLtGKFvSDNuJRQfTKNjGRCyKQJvDXLhQQFtQAQvDKAlAXQtSA1YIE43gKJux9M3DTPmYV1ssm c/Bs2KDIbwmfDokJAiLA9BCrWnGZ9gge6ABoIpMM4i qq5AKKgSGaAvY1M0xMNcMBMxPRQZBzVbS54mQUbjEj15ERzoGBBgRmBtAVj3Ui0VYyCmR8pwWRDuEbL5 HTAkXjI9ZRSjZmZxYRdpNG4Te6RvoIThPIk+Iv9MXP9zs0KkXMerAaViJD2vvz3EBGkUFxBlA9Z9oVXp T3B2FMfyOj7KSZCaVIQmEwPnWRHMYBdkUK1ZYL6jjo X6FB2PmKDbCBMhEQAwdGThHVf3Z33ykSRiTZcbKJ3YMAT+Antonio+Gg1IUDKtTOXfNPIrNfSfLXOOIiKyK3 6ghGYiJSQrYOEoNFPaPv8QMXIlC3AqycZyyNbkrmAxRLXhSPOBKB6PWSuhmcJsfKIpqMmkPS18cVepNX 2UOf6TIbNxZH8mcp5LfXSsKi9GGIZnIS2PQHEsXIQr RNXlMYL8WVHoAeHgAMezWPDeTTEaLMF0CHFtFIWqFZ0EMtOpACFxUPU9YiOmPIMuUOCotg0NIELkVJO7 Vvf3RsUhKDYdBYNkYKumSGGmYPRtSEilRKQwZDIrIH3QAtYzHDAkTBYhGiKyIUFaBHClgk1PRVKkSHEj GfK1HUFrLYLuBDIiEXmvRBVjTXE9VBS6PRKfJHTbKE 7SKmZzNKNhHOCuYzOvLCDsIDTtnr3NHMEeZOMbFmR2ZBYmQOExHAExWIqgZWXhKSW7Njz2UBKgTTOeAP 4CIhOcMGXaWRU5DYweGFRkXTJfvz9PDIAoYVNaDtFqHlMmOHPbCSNmDVmuDRKcAQW5IjY1MBHqXUEdHU 0BSoGnUGNqDJa5PTplFQPoDBVkbs9QEZCfRXFeFha1 TvBxXOMcJWFaJIvuTLVqNNMaBNwtVUKiHUJiPE3TKiVrSGSePZHhKZRsVIYmJTSfym5CRUJhDALjTfQa DxFpMKZqZYJfYKxoYGYuAKBhPls7NBVePJAxGC5CDfGnOYDbIFH9EaKsHHKpODMkyn4GJIPuUFUuGRiz JiRfRVWdJZFdPUltRIJjFQF5TAq7VXTwJSKzEW6UJj TmZKYvKzM7GgNpZODbMMMtpj9OKEXhIXOzRmO5MGXgZTZeWCYsBYwzFPKpAXMgEOX4TGHnSGLsFP1HKh KvRTHhAocaUdHuRCWnWTLijz9XSZCeSKN9Tym8FtPeCLJxJYHdXSuoHIUpQMPlQuT8RXSySHIbPE8PLg SzECZmWhDaDRDrHSEsUVOzyc9CHTPqWZC3Bdq5ViBi DIPnGDDfMBjwFYLxKDf6RXGfXIDkRBIaKG0RHyBaQAItDDU2YfXdQJGhWNNtjt2PITGwTBQ1Tib0AoBf HYErFTKqXXv0nnCukOMiJZr8ZO7WL2MqgvZbZgHPCy0Dx282GROaQWZyAy1RH2msQb9uNBNtOJHHHd0H JAp1LsPrGvGtIStuHACsIXxvBXK7UjraKBLbRyAoQd diNGY+JPwbO9PpGtIwMKLyWAHxQKZlZxttNJYjPFPdFZEgO7K1Ve8iUIJLNk9+DQpzdGFydHhyZWYNCj r8WHW6NYfwYWSUMp2G Procedure Social History Code Duration Value Status Description Data Source(s ) Smoking 09/02/2019 12:00:00 AM EDT Never Smoker completed Never S moker eCW1 ([facility]) Smoking 09/02/2019 12:00:00 AM EDT Never Smoker completed Never S moker eCW1 ([facility]) Smoking 09/02/2019 12:00:00 AM EDT Never Smoker completed Never S moker eCW1 ([facility]) Smoking 09/02/2019 12:00:00 AM EDT Never Smoker completed Never S moker eCW1 ([facility]) Smoking 09/02/2019 12:00:00 AM EDT Never Smoker completed Never S moker eCW1 ([facility]) Smoking 09/02/2019 12:00:00 AM EDT Never Smoker completed Never S moker eCW1 ([facility]) Smoking 09/02/2019 12:00:00 AM EDT Never Smoker completed Never S moker eCW1 ([facility]) Alcohol intake 08/30/2019 12:00:00 AM EDT Yes completed [facility] Smoking 08/30/2019 12:00:00 AM EDT Former smoker completed Former smoker [facility] Vital Signs ID Date Data Source UNK Name Value Range Interpretation Code Description Data Source(s) Body surface area Derived from formula 2.13 m2 2.13 m2 [facility] ([facility]) Body weight 95.256 kg 95.256 kg [facility] ([facility]) [place] body weight 166 [lb_av] 166 [lb_av] MEDEN T ([facility]) Body mass index (BMI) [Ratio] 30.1 kg/m2 30.1 k g/m2 [facility] ([facility]) Body weight 210.00 [lb_av] 210.00 [[facility]_av] [facility] Body height 70 [in_i] 70 [in_i] [facility] ([facility]) 5'10" Diastolic blood pressure 76 mm[Hg] 76 mm[Hg] MEDENT ([facility], ) Systolic blood pressure 148 mm[Hg] 148 mm[Hg] M EDENT ([facility], ) Oxygen saturation in Arterial blood by Pulse oximetry 98 % 98 % eCW1 ([facility]) Respiratory rate 18 /min 18 /min eCW1 ([facility]) Heart rate 74 /min 74 /min eCW1 ([facility]) Body temperature 98.2 [degF] 98.2 [degF] eCW1 ( [facility]) Body mass index (BMI) [Ratio] 30.15 kg/m2 30.15 kg/m2 eCW1 ([facility]) Body weight 204.2 [lb_av] 204.2 [lb_av] eCW1 ([facility]) Body height 69 [in_i] 69 [in_i] eCW1 ([facility]) Oxygen saturation in Arterial blood by Pulse oximetry 98 % 98 % [facility] Respiratory rate 16 /min 16 /min [facility] Body temperature 36.39 Britta 36.39 Britta [facility] Heart rate 55 /min 55 /min [facility] Diastolic blood pressure 82 mm[Hg] 82 mm[Hg] [facility] Systolic blood pressure 147 mm[Hg] 147 mm[Hg] [facility] Body mass index (BMI) [Ratio] 28.88 kg/m2 28.88 kg/m2 [facility] Body weight 91.3 kg 91.3 kg [facility] Body height 177.8 cm 177.8 cm [facility] Deprecated Oxygen saturation in Capillary blood by Oximetry 97 % 97 % eCW1 ([facility]) Respiratory rate 18 /min 18 /min eCW1 ([facility]) Heart rate 63 /min 63 /min eCW1 ([facility]) Body temperature 98.2 [degF] 98.2 [degF] eCW1 ( [facility]) Body mass index (BMI) [Ratio] 30.71 kg/m2 30.71 kg/m2 eCW1 ([facility]) Body weight Measured 208.0 [lb_av] 208.0 [lb_av ] eCW1 ([facility]) Body height 69 [in_us] 69 [in_us] eCW1 ([facility]) Patient Treatment Plan of Care Planned Activity Planned Date Details Description Data Source (s) 1 ML evolocumab 140 MG/ML Auto-Injector [Repatha] 06/04/2019 12: 00:00 AM EDT [facility]
--- NOTE | 2020-04-17 13:09 | ROOR ---
Patient Name: Wesley Hernandez Procedure Date: 04/17/2020 12:35 PM Date of : 1965 Age: 55 Room: [facility] Gender: Male Note Status: Finalized Procedure: Upper GI endoscopy Indications: Dyspepsia Providers: Bebeto Tenorio MD Referring MD: [facility], Admin., Karen PRICE NP Requesting Provider: Medicines: Monitored Anesthesia Care Complications: No immediate complications. Procedure: Pre-Anesthesia Assessment: - Prior to the procedure, a History and Physical was performed, and patient medications and allergies were reviewed. The patient is competent. The risks and benefits of the procedure and the sedation options and risks were discussed with the patient. All questions were answered and informed consent was obtained. Patient identification and proposed procedure were verified by the physician, the nurse and the anesthesiologist in the procedure room. Mental Status Examination: alert and oriented. Airway Examination: normal oropharyngeal airway and neck mobility. Respiratory Examination: clear to auscultation. CV Examination: normal. Prophylactic Antibiotics: The patient does not require prophylactic antibiotics. Prior Anticoagulants: The patient has taken Plavix (clopidogrel), last dose was 5 days prior to procedure. ASA Grade Assessment: II - A patient with mild systemic disease. After reviewing the risks and benefits, the patient was deemed in satisfactory condition to undergo the procedure. The anesthesia plan was to use monitored anesthesia care (MAC). Immediately prior to administration of medications, the patient was re-assessed for adequacy to receive sedatives. The heart rate, respiratory rate, oxygen saturations, blood pressure, adequacy of pulmonary ventilation, and response to care were monitored throughout the procedure. The physical status of the patient was re-assessed after the procedure. The Endoscope was introduced through the mouth, and advanced to the second part of duodenum. The upper GI endoscopy was accomplished without difficulty. The patient tolerated the procedure well. Findings: The examined esophagus was normal. Scattered mild inflammation characterized by erythema and granularity was found in the gastric antrum. Biopsies were taken with a cold forceps for Helicobacter pylori testing. Verification of patient identification for the specimen was done by the physician and nurse using the patient's name, date and medical record number. Estimated blood loss was minimal. The duodenal bulb and second portion of the duodenum were normal. Impression: - Normal esophagus. - Gastritis. Biopsied. - Normal duodenal bulb and second portion of the duodenum. Recommendation: - Patient has a contact number available for emergencies. The signs and symptoms of potential delayed complications were discussed with the patient. Return to normal activities tomorrow. Written discharge instructions were provided to the patient. - High fiber diet. - Continue present medications. - Follow an antireflux regimen. - Await pathology results. - Telephone GI clinic for pathology results in 2 weeks. - Return to primary care physician. Procedure Code(s): --- Professional --- 86677, Esophagogastroduodenoscopy, flexible, transoral; with biopsy, single or multiple Diagnosis Code(s): --- Professional --- K29.70, Gastritis, unspecified, without bleeding R10.13, Epigastric pain CPT copyright 2019 [employer]. All rights reserved. The codes documented in this report are preliminary and upon lease out worker review may be revised to meet current compliance requirements. Bebeto Tenorio MD Bebeto Tenorio MD 04/17/2020 1:09:11 PM Electronically signed by Bebeto Tenorio MD Number of Addenda: 0 Note Initiated On: 04/17/2020 12:35 PM Estimated Blood Loss: Estimated blood loss was minimal.
[2020-04-17 13:15] VITALS: BP 142/79
== END 2020-04-17 13:16 | disposition home or self-care (01) ==
LOC: M OPP 11:56
PROVIDERS: ATTEND Internal Medicine Gastroenterology
DX: R10.13 Epigastric pain (principal); D13.1 Benign neoplasm of stomach; K29.70 Gastritis, unspecified, without bleeding; I25.10 Atherosclerotic heart disease of native coronary artery without angina pectoris; I25.2 Old myocardial infarction; I10 Essential (primary) hypertension; E78.5 Hyperlipidemia, unspecified; M19.90 Unspecified osteoarthritis, unspecified site; G47.30 Sleep apnea, unspecified; Z95.5 Presence of coronary angioplasty implant and graft; Z79.82 Long term (current) use of aspirin; Z79.899 Other long term (current) drug therapy; Z82.49 Family history of ischemic heart disease and other diseases of the circulatory system
CPT/HCPCS: 43239; 88305; J3010

== ENCOUNTER 2021-06-21 14:37 | Emergency (ER) | payer BC, OTHER ==
[~2021-06-21] VITALS: Ht 177.8 cm; Wt 93.2 kg
[~2021-06-21 14:37] MED LIST changes: -D31000TA2 PO; -LIDOCAINE 2% 100MG/5ML SDV (FOR ANES.) As Ordered ONE; +LOSA25TA13 PO; -LOSA25TA14 PO; -NS 1,000 ML IV ONE; +OMEP20TA2 PO; -OMEP20TA9 PO; +VITA100093 PO; -fentaNYL 100 MCG/2 ML INJECTION (J3010) As Ordered ONE; -propofoL 200 MG/20 ML VIAL As Ordered ONE
[2021-06-21] MEDS ORDERED: ONDANSETRON 4MG/2ML VIAL IV ONE (15:45)
[2021-06-21] MEDS ORDERED: NS 1,000 ML IV ONE (15:45)
[2021-06-21] MEDS ORDERED: ISOVUE-370 76% 100ML VIAL As Ordered ONE (16:08)
[2021-06-21 16:09] LABS: BASO % 0.2 % (0.0-1.0); EOS # 0.1 10^3/uL (0.0-0.5); EOS % 0.5 % (0.0-3.0); HEMATOCRIT 44.6 % (42.0-52.0); HEMOGLOBIN 15.6 g/dl (13.5-17.5); LYMPH # 0.7 10^3/uL (1.5-5.0); LYMPH % 5.2 % (24.0-44.0); MEAN CORPUSCULAR HEMOGLOBIN 30.8 pg (27.0-33.0); MONO # 0.9 10^3/uL (0.0-0.8); MONO % 6.6 % (2.0-8.0); NEUTROPHILS # 12.2 10^3/uL (1.5-8.5); NEUTROPHILS % 87.1 % (36.0-66.0); PLATELET COUNT, AUTOMATED 289 10^3/uL (150-450); RED BLOOD COUNT 5.07 10^6/uL (4.30-6.10)
[2021-06-21 16:39] LABS: CK-MB VALUE MASS < 1.0 NG/ML (<3.6); CPK CREATINE PHOSPHOKINASE 58 U/L (39-308); MB/CK RELATIVE INDEX 1.72 (< OR =4)
[2021-06-21 16:42] LABS: ALBUMIN 4.1 GM/DL (3.2-5.2); BILIRUBIN,DIRECT 0.1 MG/DL (0.0-0.2); BILIRUBIN,TOTAL 0.8 MG/DL (0.2-1.0); TOTAL PROTEIN 7.4 GM/DL (6.4-8.2)
[2021-06-21] MEDS ORDERED: ONDA4TAB6 PO (17:52)
[2021-06-21 18:15] VITALS: BP 127/71
== END 2021-06-21 18:27 | disposition home or self-care (01) ==
LOC: M ED 14:37
DX: K52.9 Noninfective gastroenteritis and colitis, unspecified (principal); E78.5 Hyperlipidemia, unspecified; I10 Essential (primary) hypertension
CPT/HCPCS: 74177; 80047; 80076; 82550; 82553; 83690; 84484; 85025; 93005; 93041; 96361; 96374; 99285; J2405; Q9967

== ENCOUNTER → 2023-07-17 | Outpatient (CLI) | payer BC, OTHER ==
[~2023-07-17] MED LIST changes: +CLOP75TA99 PO; +E-Z-PAQUE 96% w/w SUSP 176GM BTL As Ordered ONE; +ONDA4TAB6 PO; -PLAV1TAB2 PO
== END ==
LOC: M RAD 07:39
PROVIDERS: ATTEND Nurse Practitioner Family
DX: R10.9 Unspecified abdominal pain (principal)

== ENCOUNTER → 2023-07-19 | Outpatient (CLI) | payer BC, OTHER ==
[~2023-07-19] MED LIST changes: -E-Z-PAQUE 96% w/w SUSP 176GM BTL As Ordered ONE
== END ==
LOC: M RAD 09:04
PROVIDERS: ATTEND Nurse Practitioner Family
DX: R14.3 Flatulence (principal); R10.9 Unspecified abdominal pain